=== PATIENT | female | born 1955 | race Asian ===

== ENCOUNTER 2020-04-24 07:08 | Outpatient (REF) | payer OTHER, SELFPAY ==
[2020-04-24 07:41] LABS: MANUAL DIFF FLAG NO
[2020-04-24 07:51] LABS: Basophils Absolute Auto 0.1 X10*3/uL (0.0-0.2); Basophils Percent Auto 1.3 % (0-2); Eosinophils Absolute Auto 0.2 X10*3/uL (0.0-0.4); Eosinophils Percent Auto 4.4 % (0-4); Hematocrit 40.8 % (37-47); Hemoglobin 13.1 g/dl (12.0-16.0); Imm Gran Abs Auto 0.01 X10*3/uL (0.00-0.03); Imm Gran Pct Auto 0.2 % (0.0-0.4); Immature Retic Fraction 8.7 % (3.0-15.9); Lymphocytes Absolute Auto 2.2 X10*3/uL (1.2-4.9); Lymphocytes Percent Auto 40.3 % (20-40); Mean Corpuscular HGB Conc 32.1 g/dl (31.0-35.0); Mean Corpuscular Hemoglobin 24.1 pg (27.0-33.0); Mean Platelet Volume 9.4 fL (9.4-12.3); Monocytes Absolute Auto 0.4 X10*3/uL (0.1-1.2); Monocytes Percent Auto 6.9 % (2-11); Neutrophils Absolute Auto 2.6 X10*3/uL (2.0-8.3); Neutrophils Percent Auto 46.9 % (45-73); Platelet Count 286 X10*3/uL (160-400); Red Blood Count 5.44 X10*6/uL (4.20-5.50); Red Cell Distribution Width 13.5 % (11.0-16.0); Retic HGB Equivalent 27.2 pg (30.0-35.0); Reticulocyte Percent 1.3 % (0.5-1.8); Reticulocytes Absolute 0.072 X10*6/uL (0.026-0.095); White Blood Count 5.5 X10*3/uL (4.8-10.8)
[2020-04-24 08:04] LABS: Alanine Aminotransferase 24 U/L (0-31); Albumin Level 4.6 g/dL (3.5-5.0); Alkaline Phosphatase 96 U/L (39-117); Anion Gap 14 (12-20); Aspartate Amino Transferase 28 U/L (5-31); Bilirubin Total 0.3 mg/dL (0.0-1.0); Blood Urea Nitrogen 15 mg/dL (9-16); Calcium 9.6 mg/dL (8.4-10.2); Carbon Dioxide 27 mmol/L (22-29); Chloride 104 mmol/L (96-108); Cholesterol 225 mg/dL; Estimated Glomerular Filt Rate > 60; Glucose Random 97 mg/dL (60-115); HDL Cholesterol 68 mg/dL; Iron 115 mcg/dL (30-160); LDL Cholesterol Calculated 141 mg/dl; Percent Iron Saturation 33 % (15-50); Potassium 4.8 mmol/l (3.3-5.1); Sodium 140 mmol/L (135-145); Total Iron Binding Capacity 345 mcg/dL (228-428); Total Protein 8.2 g/dL (6.5-8.0); Triglycerides 82 mg/dL; Unsaturated Iron Binding 230 ug/dL
[2020-04-24 08:26] LABS: Ferritin 295 ng/mL (10-250); Free T4 (Free Thyroxine) 0.98 ng/dL (0.71-1.85); Thyroid Stimulating Hormone 1.43 uIU/mL (0.32-4.0); Vitamin D 25-OH Total 74.5 ng/mL (>30)
[2020-04-24 08:49] LABS: Folate > 20.0 ng/mL (> or = 4.0); Vitamin B12 1040 pg/mL (200-900)
[2020-04-24 08:55] LABS: Glucose Urine UA NEG (NEG); Leukocyte Esterase Urine NEG (NEG); Nitrite Urine NEG (NEG); Urine Blood NEG (NEG); Urine Ketones NEG (NEG); Urine Protein NEG (NEG-TRACE)
[2020-04-24 08:57] LABS: Appearance Urine CLEAR; Color Urine YELLOW
[2020-04-24 09:17] LABS: Bacteria Urine TRACE /LPF; Mucus Urine 1+ /LPF; RBC Urine 0-2 /HPF (0); Squamous Epithelial Cell Urine 1+ /LPF; WBC Urine 0-2 /HPF (0-4)
== END 2020-04-24 07:09 | disposition home or self-care (01) ==
LOC: HO.LAB 07:08
PROVIDERS: Visit Provider Internal Medicine
DX: Z00.00 Encounter for general adult medical examination without abnormal findings (principal); E78.00 Pure hypercholesterolemia, unspecified
CPT/HCPCS: 36415; 80053; 80061; 81001; 82306; 82607; 82728; 82746; 83540; 84439; 84443; 85025; 85045

== ENCOUNTER 2021-05-10 07:48 | Outpatient (REF) | payer OTHER, SELFPAY ==
--- NOTE | ~2021-05-10 | MM_ITS ---
EXAMINATION: MM SCREENING DIGITAL BREAST TOMOSYNTHESIS, BILATERAL CLINICAL INFORMATION: Screening. Asymptomatic. The lifetime risk of breast cancer based on the Tyrer-Cuzick Model is 4.3%. COMPARISON: Mammography: September 29, 2018 and studies dating back to May 15, 2013 TECHNIQUE: Digital breast tomosynthesis is performed in both the craniocaudal and mediolateral oblique views along with computer-aided detection (CAD). Synthesized 2D images are generated from the tomosynthesis. FINDINGS: There are scattered areas of fibroglandular density (ACR BI-RADS breast composition Category b). There are no significant masses, abnormal calcifications, or other abnormalities. MM/MM tomosynthesis screening BI IMPRESSION: There are no significant changes from prior study. ASSESSMENT: BI-RADS 1: Negative RECOMMENDATION: Routine annual mammography screening. This patient's information was entered into a reminder system with a target due date for their next mammogram.
--- NOTE | ~2021-05-10 | MM_ITS ---
EXAMINATION: BONE DENSITOMETRY CLINICAL INDICATION: Osteopenia. COMPARISON: Previous BD dated 09/29/2018 and baseline BD dated 09/13/2016. TECHNIQUE: Using a [employer]anta[employer] DXA System (software version: 13.1) manufactured by [employer], dual-energy x-ray absorptiometry was performed of the lumbar spine and left hip. The images are of good technical quality. Summary results are attached. FINDINGS: AP SPINE L1-L4: Current: BMD 0.912 g/cm2, Z-score -0.4, T-score -2.2, osteopenia, 0.8% decrease from previous, 2.4% decrease from baseline (<5% change is not significant). Prior: BMD 0.919 g/cm2. Baseline: BMD 0.934 g/cm2. LEFT FEMUR, NECK: Current: BMD 0.807 g/cm2, Z-score -0.1, T-score -1.7, osteopenia. Prior: BMD 0.780 g/cm2. Baseline: BMD 0.830 g/cm2. LEFT FEMUR, TOTAL: Current: BMD 0.886 g/cm2, Z-score 0.4, T-score -1.0, normal, 2.3% decrease from previous, 0.2% increase from baseline (<5% change is not significant). Prior: BMD 0.907 g/cm2. Baseline: BMD 0.884 g/cm2. IDENTIFIED RISK FACTORS: Menopause, intestinal/bowel disease, secondary osteoporosis. HISTORY OF FRACTURE: None listed. MEDICATIONS: Calcium, vitamin D. MM/XR DEXA axial skeleton IMPRESSION: 1. DIAGNOSIS: Osteopenia based on the lowest T-score value of -2.2 in the lumbar spine applying World Health Organization criteria. 2. 10-YEAR FRACTURE RISK PREDICTION, FRAX: Major osteoporotic fracture (clinical spine, forearm, hip or shoulder) 5.1%. Hip fracture 0.6%. 3. Treatment Recommendations: NOF guidelines recommend consideration for treatment in postmenopausal women and men age 50 and older presenting with the following: -A hip or vertebral (clinical or morphometric) fracture. -T-score less than or equal to -2.5 at the femoral neck or spine after appropriate evaluation to exclude secondary causes. -Low bone mass at the hip or spine and a 10-year fracture probability by FRAX of greater than or equal to 3% for hip fracture or greater than or equal to 20% for major osteoporotic fracture based on the [place] adapted WHO algorithm. 4. Other Recommendations: All treatment decisions require clinical judgment and consideration of individual patient factors, including patient preferences, comorbidities, previous drug use, risk factors not captured in the FRAX model (e.g. frailty, falls, vitamin D deficiency, increased bone turnover, interval significant decline in bone density) and possible under or overestimation of fracture risk by FRAX. Additional medical evaluation for secondary cause of low bone mineral density may be appropriate. FUTURE SCAN RECOMMENDATION: People with diagnosed cases of osteoporosis or at high risk for fracture should have regular bone mineral density tests. For patients eligible for Medicare, routine testing is allowed once every 2 years. The testing frequency can be increased to one year for patients who have rapidly progressing disease, those who are receiving or discontinuing medical therapy to restore bone mass, or have additional risk factors.
== END 2021-05-10 07:49 | disposition home or self-care (01) ==
LOC: HO.MAMMO 07:48
PROVIDERS: PCP Internal Medicine; Visit Provider Internal Medicine
DX: Z12.31 Encounter for screening mammogram for malignant neoplasm of breast (principal); Z13.820 Encounter for screening for osteoporosis; M85.80 Other specified disorders of bone density and structure, unspecified site; Z78.0 Asymptomatic menopausal state; Z79.899 Other long term (current) drug therapy
CPT/HCPCS: 77063; 77067; 77080

== ENCOUNTER 2021-05-19 08:03 | Outpatient (REF) | payer OTHER, SELFPAY ==
[2021-05-19 08:18] LABS: MANUAL DIFF FLAG NO
[2021-05-19 08:42] LABS: Basophils Absolute Auto 0.1 X10*3/uL (0.0-0.2); Basophils Percent Auto 1.1 % (0-2); Eosinophils Absolute Auto 0.2 X10*3/uL (0.0-0.4); Hemoglobin 12.2 g/dl (12.0-16.0); Imm Gran Abs Auto 0.01 X10*3/uL (0.00-0.03); Imm Gran Pct Auto 0.2 % (0.0-0.4); Lymphocytes Absolute Auto 2.4 X10*3/uL (1.2-4.9); Lymphocytes Percent Auto 42.3 % (20-40); Mean Corpuscular HGB Conc 32.1 g/dl (31.0-35.0); Mean Corpuscular Hemoglobin 24.1 pg (27.0-33.0); Mean Corpuscular Volume 75.1 fL (80.0-98.0); Mean Platelet Volume 9.4 fL (9.4-12.3); Monocytes Absolute Auto 0.3 X10*3/uL (0.1-1.2); Monocytes Percent Auto 6.1 % (2-11); Neutrophils Absolute Auto 2.6 x10*3/uL (2.0-8.3); Neutrophils Percent Auto 46.3 % (45-73); Platelet Count 294 X10*3/uL (160-400); Red Blood Count 5.06 X10*6/uL (4.20-5.50); Red Cell Distribution Width 14.1 % (11.0-16.0); White Blood Count 5.6 X10*3/uL (4.8-10.8)
[2021-05-19 09:03] LABS: Alanine Aminotransferase 20 U/L (0-31); Albumin Level 4.4 g/dL (3.5-5.0); Alkaline Phosphatase 95 U/L (39-117); Anion Gap 12 (12-20); Aspartate Amino Transferase 26 U/L (5-31); Bilirubin Total 0.3 mg/dL (0.0-1.0); Blood Urea Nitrogen 13 mg/dL (9-16); Calcium 10.1 mg/dL (8.4-10.2); Carbon Dioxide 29 mmol/L (22-29); Chloride 105 mmol/L (96-108); Cholesterol 199 mg/dL; Estimated Glomerular Filt Rate > 60; Glucose Random 95 mg/dL (60-115); HDL Cholesterol 60 mg/dL; LDL Cholesterol Calculated 124 mg/dl; Potassium 4.9 mmol/L (3.3-5.1); Sodium 141 mmol/L (135-145); Triglycerides 76 mg/dL
[2021-05-19 09:25] LABS: Free T4 (Free Thyroxine) 0.91 ng/dL (0.71-1.85); Thyroid Stimulating Hormone 0.94 uIU/mL (0.32-4.0); Vitamin D 25-OH Total 79.8 ng/mL (>30)
[2021-05-21 04:40] LABS: Folate > 20.0 ng/mL (> or = 4.0); Vitamin B12 944 pg/mL (200-900)
== END 2021-05-19 08:04 | disposition home or self-care (01) ==
LOC: HO.LAB 08:03
PROVIDERS: PCP Internal Medicine; Visit Provider Internal Medicine
DX: E78.00 Pure hypercholesterolemia, unspecified (principal)
CPT/HCPCS: 36415; 80053; 80061; 82306; 82607; 82746; 84439; 84443; 85025

== ENCOUNTER 2021-08-03 05:57 | Outpatient (REF) | payer OTHER, SELFPAY ==
[2021-08-03 07:52] LABS: Anion Gap 13 (12-20); Blood Urea Nitrogen 10 mg/dL (9-16); Calcium 9.6 mg/dL (8.4-10.2); Carbon Dioxide 25 mmol/L (22-29); Chloride 105 mmol/L (96-108); Estimated Glomerular Filt Rate > 60; Glucose Random 91 mg/dL (60-115); Potassium 4.7 mmol/L (3.3-5.1); Sodium 138 mmol/L (135-145)
== END 2021-08-03 05:58 | disposition home or self-care (01) ==
LOC: HO.LAB 05:57
PROVIDERS: PCP Internal Medicine; Visit Provider Nurse Practitioner Family
DX: I10 Essential (primary) hypertension (principal)
CPT/HCPCS: 36415; 80048

== ENCOUNTER 2022-05-18 07:51 | Outpatient (REF) | payer MEDICARE, SELFPAY ==
[2022-05-18 08:07] LABS: MANUAL DIFF FLAG NO
[2022-05-18 08:30] LABS: Basophils Absolute Auto 0.1 X10*3/uL (0.0-0.2); Basophils Percent Auto 1.1 % (0-2); Eosinophils Absolute Auto 0.3 X10*3/uL (0.0-0.4); Hematocrit 38.1 % (37.0-47.0); Hemoglobin 12.2 g/dl (12.0-16.0); Imm Gran Abs Auto 0.01 X10*3/uL (0.00-0.03); Imm Gran Pct Auto 0.2 % (0.0-0.4); Immature Retic Fraction 13.9 % (3.0-15.9); Lymphocytes Absolute Auto 2.4 X10*3/uL (1.2-4.9); Lymphocytes Percent Auto 43.8 % (20-40); Mean Corpuscular Hemoglobin 23.8 pg (27.0-33.0); Mean Corpuscular Volume 74.3 fL (80.0-98.0); Mean Platelet Volume 8.6 fL (9.4-12.3); Monocytes Absolute Auto 0.3 X10*3/uL (0.1-1.2); Monocytes Percent Auto 5.3 % (2-11); Neutrophils Absolute Auto 2.4 x10*3/uL (2.0-8.3); Neutrophils Percent Auto 44.6 % (45-73); Platelet Count 287 X10*3/uL (160-400); Red Blood Count 5.13 X10*6/uL (4.20-5.50); Red Cell Distribution Width 13.2 % (11.0-16.0); Retic HGB Equivalent 29.6 pg (30.0-35.0); Reticulocyte Percent 1.1 % (0.5-1.8); Reticulocytes Absolute 0.057 X10*6/uL (0.026-0.095); White Blood Count 5.4 X10*3/uL (4.8-10.8)
[2022-05-18 09:08] LABS: Alanine Aminotransferase 37 U/L (0-31); Albumin Level 4.4 g/dL (3.5-5.0); Alkaline Phosphatase 89 U/L (39-117); Anion Gap 15 (12-20); Aspartate Amino Transferase 37 U/L (5-31); Bilirubin Total 0.7 mg/dL (0.0-1.0); Blood Urea Nitrogen 11 mg/dL (9-16); Calcium 9.7 mg/dL (8.4-10.2); Carbon Dioxide 26 mmol/L (22-29); Chloride 101 mmol/L (96-108); Cholesterol 208 mg/dL; Estimated Glomerular Filt Rate > 60; Glucose Random 91 mg/dL (60-115); HDL Cholesterol 55 mg/dL; Iron 132 mcg/dL (30-160); LDL Cholesterol Calculated 130 mg/dl; Percent Iron Saturation 42 % (15-50); Potassium 4.8 mmol/L (3.3-5.1); Sodium 137 mmol/L (135-145); Total Iron Binding Capacity 311 mcg/dL (228-428); Total Protein 7.8 g/dL (6.5-8.0); Triglycerides 116 mg/dL; Unsaturated Iron Binding 179 ug/dL
[2022-05-18 09:40] LABS: Ferritin 459 ng/mL (10-250); Free T4 (Free Thyroxine) 0.98 ng/dL (0.71-1.85); Thyroid Stimulating Hormone 1.02 uIU/mL (0.32-4.0); Vitamin B12 1066 pg/mL (200-900); Vitamin D 25-OH Total 66.1 ng/mL (>30)
== END 2022-05-18 07:52 | disposition home or self-care (01) ==
LOC: HO.LAB 07:51
PROVIDERS: PCP Internal Medicine; Visit Provider Internal Medicine
DX: E78.00 Pure hypercholesterolemia, unspecified (principal); I10 Essential (primary) hypertension
CPT/HCPCS: 36415; 80053; 80061; 82306; 82607; 82728; 82746; 83540; 84439; 84443; 85025; 85045

== ENCOUNTER 2022-06-22 10:39 | Outpatient (REF) | payer MEDICARE, SELFPAY ==
--- NOTE | ~2022-06-22 | MM_ITS ---
EXAMINATION: MM SCREENING DIGITAL BREAST TOMOSYNTHESIS, BILATERAL CLINICAL INFORMATION: Screening. Asymptomatic. The lifetime risk of breast cancer based on the Tyrer-Cuzick Model is 4%. COMPARISON: Mammography: 05/10/2021, 09/29/2018, 09/27/2017 TECHNIQUE: Digital breast tomosynthesis is performed in both the craniocaudal and mediolateral oblique views along with computer-aided detection (CAD). Synthesized 2D images are generated from the tomosynthesis. Additional left MLO view is provided. FINDINGS: There are scattered areas of fibroglandular density (ACR BI-RADS breast composition Category b). There are no significant masses, abnormal calcifications, or other abnormalities. No architectural abnormality or developing density or significant change from prior studies. There are some scattered vascular calcifications again seen. The axilla and skin contours are unremarkable. MM/MM tomosynthesis screening BI IMPRESSION: No mammographic evidence of malignancy. ASSESSMENT: BI-RADS 1: Negative RECOMMENDATION: Routine annual mammography screening. This patient's information was entered into a reminder system with a target due date for their next mammogram.
== END 2022-06-22 10:40 | disposition home or self-care (01) ==
LOC: HO.MAMMO 10:39
PROVIDERS: Visit Provider Internal Medicine
DX: Z12.31 Encounter for screening mammogram for malignant neoplasm of breast (principal)
CPT/HCPCS: 77063; 77067

== ENCOUNTER 2023-04-04 10:08 | Outpatient (AMB) | payer MEDICARE, SELFPAY ==
[2023-04-04 10:10] VITALS: BP 118/78; PULSE 70; O2SAT 99; BMI 21.9
--- NOTE | 2023-04-04 10:10 | A.OFFPC_ITS ---
Vital Signs 04/04/23 10:10 Height 5 ft 2 in Weight 120 lb 0.2 oz BMI 21.9 BP 118/78 Blood Pressure Location Lt brachial Position Sitting Pulse 70 Pulse Source Pulse Oximeter Pulse Oximetry (%) 99 Oxygen Delivery Method Room Air Intake Visit Reasons: Annual Exam Intake Note: Patient is here today for a physical. Manager Privacy Required: No Allergies lisinopril Allergy (Intermediate, Verified 04/04/23 10:10) Cough dextromethorphan [From Robitussin Cough and Cold CF] Allergy (Unknown, Verified 04/04/23 10:10) Unknown guaifenesin [From Robitussin Cough and Cold CF] Allergy (Unknown, Verified 04/04/23 10:10) Unknown phenylephrine [From Robitussin Cough and Cold CF] Allergy (Unknown, Verified 04/04/23 10:10) Unknown amoxicillin Adverse Reaction (Mild, Unverified 04/04/23 10:20) Fainting Medication List - Last Reconciled 04/04/23 by Ernie Almeida MD biotin 10 mg PO DAILY cholecalciferol (vitamin D3) 25 mcg PO DAILY losartan-hydrochlorothiazide 100-12.5 mg 1 tab PO DAILY 90 days multivitamin 1 tab PO DAILY Tobacco use date assessed: 04/04/23 Fall risk assessment: No Falls in past year Last assessed Fall Risk: 04/04/23 HPI Annual Exam HPI Details 68-year-old female with hypertension, hy percholesterolemia osteopenia last seen in September 2022. Patient is colonoscopy is due, up-to-date with mammogram and bone density. PAtient was seen by dentist and was rx amox- she had syncope had diarrhea- -discussedc about hydration as she has HCTZ, decline changing med PFSH Medical History (Updated 04/04/23 @ 11:17 by Ernie Almeida MD) Breast cancer screening by mammogram Colon cancer screening Blood pressure elevated without history of HTN Vitamin D deficiency Osteopenia Constipation Microcytic anemia Celiac disease Surgical History H/O endoscopy History of colonoscopy Family History (Updated 09/09/22 @ 15:53 by Hilda Knapp CMA) Father No problems noted. Paternal Aunt No problems noted. Mother No problems noted. Social History (Updated 12/29/23 @ 10:48 by Ernie Almeida MD) Housing: House Alcohol intake: current Comment: one shot once a month Patient Tobacco Use Status: Never used Tobacco e-Cigarette/Vaping Use: Never Used Second Hand Smoke Exposure: No Current occupational status: employed Cognitive needs: No Hearing needs: No Vision needs: Yes Questionnaire PHQ-9 Over the last 2 weeks, how often have you been bothered by any of the following problems? 1. Little interest or pleasure in doing things: not at all 2. Feeling down, depressed, or hopeless: not at all 3. Trouble falling or staying asleep, or sleeping too much: not at all 4. Feeling tired or having little energy: not at all 5. Poor appetite or overeating: not at all 6. Feeling bad about yourself - or that you are a failure or have let yourself or your family down: not at all 7. Trouble concentrating on things, such as reading the newspaper or watching television: not at all 8. Moving or speaking so slowly that other people could have noticed. Or the opposite - being so fidgety or restless that you have been moving around a lot more than usual: not at all 9. Thoughts that you would be better off or of hurting yourself in some way: not at all Total score: 0 Depression Screening Interpretation: Negative Depression Screening Done: Yes Source: Developed by Drs. Sincere English, Elsa Kenney, Danial Maldonado and colleagues, with an educational bryan from [employer]. Thrive Questionnaire Date Thrive assessed: 05/30/22 I am a: Patient What is your living situation today?: I have a steady place to live Within the past 12 months, did the food you bought not last and you didn't have the money to get more?: Never true Within the past 12 months, did you worry whether your food would run out before you got money to buy more?: Never true Do you have trouble paying for medicines?: No Do you have trouble getting transportation to medical appointments?: No Do you have trouble paying your heating and electricity bill?: No Do you have trouble taking care of your child, family member or friend?: No Do you have trouble with day-to-day activities such as bathing, preparing meals, shopping, managing finances, etc.?: No Are you currently unemployed and looking for a job?: No Are you interested in more education?: No AUDIT C Alcohol Use Questionnaire (AUDIT-C) 1. How often do you have a drink containing alcohol?: Monthly or less 2. How many drinks containing alcohol do you have on a typical day when you are drinking?: 1 or 2 3. How often do you have six or more drinks on one occasion?: Never Total Score: 1 Score Reviewed/Action Taken: No JUAN-7 AMB Questionnaire JUAN-7 Date JUAN - 7 assessed: 04/04/23 Feeling nervous, anxious, or on edge: 0 = Not at all Not being able to stop or control worryin = Not at all Worrying too much about different things: 0 = Not at all Trouble relaxin = Not at all Being so restless that it is hard to sit still: 0 = Not at all Becoming easily annoyed or irritable: 0 = Not at all Feeling afraid as if something awful might happen: 0 = Not at all Total JUAN-7 score (0-4 normal; 5-9 mild; 10-14 moderate; 15-21 severe): 0 Source: Developed by Drs. Sincere English, Elsa Kenney, Danial Maldonado and colleagues, with an educational bryan from [employer]. Review of Systems Const Denies poor appetite and Denies weakness Eyes Denies no additional complaints ENT Reports Normal hearing present, Denies dizziness, Denies nasal congestion, Denies tinnitus and Denies sore throat Card Denies chest pain, Denies syncope, Denies rapid heart rate and Denies dyspnea Resp Denies cough and Denies dyspnea GI Denies change in stool character, Reports constipation, Denies diarrhea, Denies nausea and Denies vomiting Denies urinary frequency, Denies difficulty voiding and Denies dysuria Neuro Reports Normal hearing present, Denies confusion, Denies dizziness, Denies syncope and Denies weakness Psych Denies confusion Physical exam (Primary Care) Vital Signs: Last Vital Signs Pulse 70 04/04/23 10:10 BP 118/78 04/04/23 10:10 Pulse Ox 99 04/04/23 10:10 Oxygen Delivery Method Room Air 04/04/23 10:10 BMI result Body Mass Index 21.9 Tobacco/Smoking Status: Tobacco use Status Tobacco use date assessed 04/04/23 04/04/23 10:11 Patient Tobacco Use Status Never used Tobacco 04/04/23 10:48 e-Cigarette/Vaping Use Never Used 04/04/23 10:48 PHQ-9: PHQ-9 Score PHQ-9: Total score 0 04/04/23 10:42 Depression Screening Interpretation: Negative Thrive Assessment: Date of Thrive Assessment Date Thrive assessed 05/30/22 04/04/23 10:11 Const General: No confusion Orientation/consciousness: No confusion HENMT Other: impacted cerumen Head: Yes normocephalic Ears: external ears normal Face and sinus: Yes normal facial exam Mouth: moist mucous membranes Throat: Yes tonsils normal Eyes Conjunctivae: conjunctivae normal Pupils: Equal, round and reactive pupils present and Pupil accommodation reflex normal Direct Ophthalmoscopy: normal light reflex Neck Neck: No lymphadenopathy Thyroid: Thyroid normal Chest Chest palpation & inspection: normal inspection of the chest Resp Effort & Inspection: normal respiratory effort and no audible wheezes Auscultation: clear to auscultation bilaterally, no crackles, no wheezes and lung sounds not diminished Cardio Rate: regular rate Rhythm: regular rhythm Peripheral pulses: radial pulses present and dorsalis pedis present GI Palpation (GI): no masses Auscultation: normal bowel sounds and normoactive bowel sounds Rectal Exam - Female: deferred Skin General skin exam: no rashes or lesions noted Rashes: no rashes Neuro General: No confusion Cranial nerves: Yes Equal, round and reactive pupils present and Yes Normal hearing present Cognition (Neuro): normal cognition Gait exam (Neuro): Normal gait present Motor exam (neuro): 5/5 motor strength present throughout Deep tendon reflexes (DTR's): Right brachioradialis reflex intensity grade: 2+, Left brachioradialis reflex intensity grade: 2+, Right patellar reflex intensity grade: 2+ and Left patellar reflex intensity grade: 2+ Extrem General: No edema Office Procedures Cerumen Removal From which ear canal was the cerumen removed: bilateral Removal: irrigation, otoscope w/curette, cerumen loop/spoon and other Notes: patient tolerated procedure well, no complications and ear canal clear [id number] Irrigation/Lavage Assessment and Plan Assessment & Plan (1) Annual physical exam: Code(s): Z00.00 - Encounter for general adult medical examination without abnormal findings (2) HTN (hypertension): Code(s): I10 - Essential (primary) hypertension Plan: Continue with blood pressure medication. Decrease salt intake and exercise patient takes losartan hydrochlorothiazide once a day (3) Hypercholesterolemia: Code(s): E78.00 - Pure hypercholesterolemia, unspecified Plan: Avoid fried foods, chicken skin, eggs, butter margarine, pastries and meat. Be it pork or beef they have a lot of cholesterol LDL goal of less than 130 and triglyceride of less than 150 (4) Osteopenia: Comment: September 2018, 05/2021 Code(s): M85.80 - Other specified disorders of bone density and structure, unspecified site Plan: Keep active, take vitamin-D, iron rich foods. (5) Colon cancer screening: Code(s): Z12.11 - Encounter for screening for malignant neoplasm of colon Plan: Reminded about colonoscopy (6) Syncope: Code(s): R55 - Syncope and collapse Plan: ? dehydration - placed on antibiotic had N and V and diarrhea. advised all antibiotic can cause diarrhea- advised to take Probiotics (7) Impacted cerumen of both ears: Code(s): H61.23 - Impacted cerumen, bilateral Plan: TM intact after irrigation Orders: Orders Comprehensive Met. Panel Today R55 - Syncope and collapse Thyroid Stimulating Hormone Today R55 - Syncope and collapse Vitamin D 25-OH Total Today R55 - Syncope and collapse Magnesium Today R55 - Syncope and collapse ECG 12 lead EKG Today R55 - Syncope and collapse Complete Blood Count Auto Diff Today R55 - Syncope and collapse Free T4 (Free Thyroxine) Today R55 - Syncope and collapse Vitamin B12 and Folate Today R55 - Syncope and collapse Lipid Panel Today E78.00 - Pure hypercholesterolemia, unspecified, R55 - Syncope and collapse Referrals Cologuard Test Z12.11 - Encounter for screening for malignant neoplasm of colon , Z12.12 - Encounter for screening for malignant neoplasm of rectum Coding Level of Care Code Est Pt Prev Care >65y(45152) Diagnoses Annual physical exam Z00.00 HTN (hypertension) I10 Hypercholesterolemia E78.00 Osteopenia M85.80 Colon cancer screening Z12.11 Syncope R55 Impacted cerumen of both ears H61.23 CPT Codes Office Procedure - CPT: 73225-Tdx Irrigation/Lavage ([id number])
== END 2023-04-04 11:33 | disposition home or self-care (01) ==
PROVIDERS: Visit Provider Internal Medicine
DX: Z00.00 Encounter for general adult medical examination without abnormal findings (principal); I10 Essential (primary) hypertension; E78.00 Pure hypercholesterolemia, unspecified; M85.80 Other specified disorders of bone density and structure, unspecified site; R55 Syncope and collapse; H61.23 Impacted cerumen, bilateral
CPT/HCPCS: 69210; 99397

== ENCOUNTER → 2023-06-16 11:49 | Outpatient (REF) | payer MEDICARE, SELFPAY ==
--- NOTE | 2023-06-16 13:45 | ECG_ITS ---
Test Reason : SYNCOPE Blood Pressure : / mmHG Vent. Rate : 080 BPM Atrial Rate : 080 BPM P-R Int : 138 ms QRS Dur : 074 ms QT Int : 368 ms P-R-T Axes : 070 052 047 degrees QTc Int : 424 ms Normal sinus rhythm Normal ECG No previous ECGs available Referred By: Ernie Almeida Electronically Signed By:CAMILO COULTER MD
== END ==
LOC: HO.CARD 11:49
PROVIDERS: PCP Internal Medicine; Visit Provider Internal Medicine
DX: R55 Syncope and collapse (principal)
CPT/HCPCS: 93005

== ENCOUNTER → 2023-06-16 13:45 | Outpatient (BNV) | payer MEDICARE, SELFPAY | PROVIDERS: PCP Internal Medicine; Visit Provider Internal Medicine Cardiovascular Disease | DX: R55 Syncope and collapse (principal) | CPT/HCPCS: 93010 ==

== ENCOUNTER 2023-06-23 07:29 | Outpatient (REF) | payer MEDICARE, SELFPAY ==
[2023-06-23 07:42] LABS: MANUAL DIFF FLAG NO
[2023-06-23 08:03] LABS: Basophils Absolute Auto 0.1 X10*3/uL (0.0-0.2); Basophils Percent Auto 1.2 % (0-2); Eosinophils Absolute Auto 0.3 X10*3/uL (0.0-0.4); Eosinophils Percent Auto 5.7 % (0-4); Hematocrit 35.6 % (37.0-47.0); Hemoglobin 11.8 g/dl (12.0-16.0); Imm Gran Abs Auto 0.01 X10*3/uL (0.00-0.03); Imm Gran Pct Auto 0.2 % (0.0-0.4); Lymphocytes Absolute Auto 2.2 X10*3/uL (1.2-4.9); Lymphocytes Percent Auto 37.9 % (20-40); Mean Corpuscular HGB Conc 33.1 g/dl (31.0-35.0); Mean Corpuscular Hemoglobin 24.3 pg (27.0-33.0); Mean Corpuscular Volume 73.4 fL (80.0-98.0); Mean Platelet Volume 8.8 fL (9.4-12.3); Monocytes Absolute Auto 0.4 X10*3/uL (0.1-1.2); Monocytes Percent Auto 6.6 % (2-11); Neutrophils Absolute Auto 2.8 x10*3/uL (2.0-8.3); Neutrophils Percent Auto 48.4 % (45-73); Platelet Count 297 X10*3/uL (160-400); Red Blood Count 4.85 X10*6/uL (4.20-5.50); Red Cell Distribution Width 13.9 % (11.0-16.0); White Blood Count 5.8 X10*3/uL (4.8-10.8)
[2023-06-23 08:37] LABS: Alanine Aminotransferase 21 U/L (0-31); Albumin Level 4.4 g/dL (3.5-5.0); Alkaline Phosphatase 98 U/L (39-117); Anion Gap 13 (12-20); Aspartate Amino Transferase 28 U/L (5-31); Bilirubin Total 0.7 mg/dL (0.0-1.0); Blood Urea Nitrogen 12 mg/dL (9-16); Calcium 9.8 mg/dL (8.4-10.2); Carbon Dioxide 27 mmol/L (22-29); Chloride 102 mmol/L (96-108); Cholesterol 195 mg/dL (<200); Estimated Glomerular Filt Rate 59; Glucose Random 95 mg/dL (60-115); HDL Cholesterol 60 mg/dL (>40); LDL Cholesterol Calculated 120 mg/dL (<100); Magnesium 2.2 mg/dL (1.6-2.6); Sodium 138 mmol/L (135-145); Total Protein 8.4 g/dL (6.5-8.0); Triglycerides 79 mg/dL (<150)
[2023-06-23 08:53] LABS: Free T4 (Free Thyroxine) 1.07 ng/dL (0.71-1.85); Thyroid Stimulating Hormone 1.69 uIU/mL (0.32-4.0); Vitamin D 25-OH Total 86.7 ng/mL (>30)
[2023-06-23 09:03] LABS: Folate 15.9 ng/mL (> or = 4.0); Vitamin B12 1287 pg/mL (200-900)
== END 2023-06-23 07:30 | disposition home or self-care (01) ==
LOC: HO.LAB 07:29
PROVIDERS: PCP Internal Medicine; Visit Provider Internal Medicine
DX: R55 Syncope and collapse (principal); E78.00 Pure hypercholesterolemia, unspecified
CPT/HCPCS: 36415; 80053; 80061; 82306; 82607; 82746; 83735; 84439; 84443; 85025

== ENCOUNTER 2023-07-04 10:03 | Outpatient (AMB) | payer MEDICARE, SELFPAY ==
[2023-07-04 10:05] VITALS: BP 148/70; PULSE 74; O2SAT 97; BMI 23.2
--- NOTE | 2023-07-04 10:05 | MHC.PC.OV ---
Vital Signs 07/04/23 10:05 Height 5 ft 2 in Weight 127 lb BMI 23.2 BP 148/70 H Blood Pressure Location Lt brachial Position Sitting Pulse 74 Pulse Source Pulse Oximeter Pulse Oximetry (%) 97 Oxygen Delivery Method Room Air Intake Visit Reasons: syncope Super[employer] Required: No Allergies lisinopril Allergy (Intermediate, Verified 07/04/23 10:06) Cough dextromethorphan [From Robitussin Cough and Cold CF] Allergy (Unknown, Verified 07/04/23 10:06) Unknown guaifenesin [From Robitussin Cough and Cold CF] Allergy (Unknown, Verified 07/04/23 10:06) Unknown phenylephrine [From Robitussin Cough and Cold CF] Allergy (Unknown, Verified 07/04/23 10:06) Unknown amoxicillin Adverse Reaction (Mild, Verified 07/04/23 10:06) Fainting Medication List - Last Reconciled 07/04/23 by Ernie Almeida MD biotin 10 mg PO DAILY cholecalciferol (vitamin D3) 25 mcg PO DAILY losartan-hydrochlorothiazide 100-12.5 mg 1 tab PO DAILY 90 days multivitamin 1 tab PO DAILY Tobacco use date assessed: 07/04/23 Dental Screening Dental Screen Date: 07/04/23 Did you have a dental visit in the last 12 months?: Yes Did you have a dental problem in the last 6 months where you did not have access to dental care?: No Was dental information given to patient?: Patient has dentist HPI syncope HPI Details 68-year-old female with a history of hypertension hypercholesterolemia osteopenia coming in for follow-up. March 2023 last seen for physical exam patient that time had a syncopal episode question of dehydration. [facility] Medical History (Updated 07/04/23 @ 10:11 by Ernie Almeida MD) Breast cancer screening by mammogram Colon cancer screening Blood pressure elevated without history of HTN Vitamin D deficiency Osteopenia Constipation Microcytic anemia Celiac disease Surgical History H/O endoscopy History of colonoscopy Family History (Updated 09/09/22 @ 15:53 by Hilda Knapp CMA) Father No problems noted. Paternal Aunt No problems noted. Mother No problems noted. Social History (Updated 04/04/23 @ 10:48 by Ernie Almeida MD) Housing: House Alcohol intake: current Comment: one shot once a month Patient Tobacco Use Status: Never used Tobacco e-Cigarette/Vaping Use: Never Used Second Hand Smoke Exposure: No Current occupational status: employed Cognitive needs: No Hearing needs: No Vision needs: Yes Questionnaire Thrive Questionnaire Date Thrive assessed: 05/30/22 AUDIT C Alcohol Use Questionnaire (AUDIT-C) 1. How often do you have a drink containing alcohol?: Monthly or less 2. How many drinks containing alcohol do you have on a typical day when you are drinking?: 1 or 2 3. How often do you have six or more drinks on one occasion?: Never Total Score: 1 Score Reviewed/Action Taken: No JUAN-7 AMB Questionnaire JUAN-7 Date JUAN - 7 assessed: 04/04/23 Source: Developed by Drs. Sincere English, Elsa Kenney, Danial Maldonado and colleagues, with an educational bryan from [employer]. Physical exam (Primary Care) Vital Signs: Last Vital Signs Pulse 74 07/04/23 10:05 BP 148/70 H 07/04/23 10:05 Pulse Ox 97 07/04/23 10:05 Oxygen Delivery Method Room Air 07/04/23 10:05 BMI result Body Mass Index 23.2 Tobacco/Smoking Status: Tobacco use Status Tobacco use date assessed 07/04/23 07/04/23 10:12 Patient Tobacco Use Status Never used Tobacco 07/04/23 10:12 e-Cigarette/Vaping Use Never Used 07/04/23 10:12 Thrive Assessment: Date of Thrive Assessment Date Thrive assessed 05/30/22 07/04/23 10:12 Const General: alert; No acute distress Eyes Conjunctivae: conjunctivae normal Resp Auscultation: clear to auscultation bilaterally Cardio Rate: regular rate Rhythm: regular rhythm GI Inspection: Yes normal to inspection Extrem General: Yes normal to inspection and No edema Assessment and Plan Assessment & Plan (1) HTN (hypertension): Code(s): I10 - Essential (primary) hypertension Plan: Continue with blood pressure medication. Decrease salt intake and exercise patient on losartan hydrochlorothiazide 100/12.5 mg once a day. BP high today (2) Hypercholesterolemia: Code(s): E78.00 - Pure hypercholesterolemia, unspecified Plan: Avoid fried foods, chicken skin, eggs, butter margarine, pastries and meat. Be it pork or beef they have a lot of cholesterol last blood work normal (3) Osteopenia: Comment: September 2018, 05/2021 Code(s): M85.80 - Other specified disorders of bone density and structure, unspecified site Plan: Discussed about bone density repeat after 2 years (4) Anemia: Code(s): D64.9 - Anemia, unspecified Plan: Question of having anemia and concerns on having a positive Cologuard test. (5) Syncope: Code(s): R55 - Syncope and collapse Plan: Anemia (6) Positive colorectal cancer screening using Cologuard test: Code(s): R19.5 - Other fecal abnormalities Plan: Patient is advised follow-up on the Gastroenterology. September 2023 Orders: Orders Complete Blood Count Auto Diff Today D64.9 - Anemia, unspecified Ferritin Today D64.9 - Anemia, unspecified IRON PROFILE Today D64.9 - Anemia, unspecified XR DEXA axial skeleton Today M81.0 - Age-related osteoporosis without current pathological fracture, M85.80 - Other specified disorders of bone density and structure, unspecified site Reticulocyte Count Today D64.9 - Anemia, unspecified Coding Level of Care Code Est Pt Level 4 (52543) Diagnoses HTN (hypertension) I10 Hypercholesterolemia E78.00 Osteopenia M85.80 Anemia D64.9 Syncope R55 Positive colorectal cancer screening using Cologuard test R19.5
== END 2023-07-04 10:28 | disposition home or self-care (01) ==
PROVIDERS: PCP Internal Medicine; Visit Provider Internal Medicine
DX: I10 Essential (primary) hypertension (principal); E78.00 Pure hypercholesterolemia, unspecified; M85.80 Other specified disorders of bone density and structure, unspecified site; D64.9 Anemia, unspecified; R55 Syncope and collapse; R19.5 Other fecal abnormalities
CPT/HCPCS: 99214

== ENCOUNTER 2023-08-05 09:42 | Outpatient (REF) | payer MEDICARE, SELFPAY ==
--- NOTE | ~2023-08-05 | MM_ITS ---
EXAMINATION: BONE DENSITOMETRY CLINICAL INDICATION: Age-related osteoporosis without current pathological fracture. COMPARISON: Previous BD dated 05/10/2021 and baseline BD dated 09/13/2016. TECHNIQUE: Using a SqueezeCMM DXA System (software version: 13.1) manufactured by [employer], dual-energy x-ray absorptiometry was performed of the lumbar spine and left hip. The images are of good technical quality. Summary results are attached. FINDINGS: LEFT FEMUR, NECK: Current: BMD 0.772 g/cm2, Z-score -0.2, T-score -1.9, osteopenia. Prior: BMD 0.807 g/cm2. Baseline: BMD 0.830 g/cm2. LEFT FEMUR, TOTAL: Current: BMD 0.821 g/cm2, Z-score 0.0, T-score -1.5, osteopenia, 7.3% decrease from previous, 7.1% decrease from baseline (<5% change is not significant). Prior: BMD 0.886 g/cm2. Baseline: BMD 0.884 g/cm2. AP SPINE L2-L4 (excluding L1): The data of L1-L4 has been changed to exclude the L1 vertebral body, because metallic artifact at this level may cause overestimation of lumbar spine density. Current: BMD 0.883 g/cm2, Z-score -0.7, T-score -2.6, osteoporosis, 6.0% decrease from previous, 7.8% decrease from baseline (<5% change is not significant). Prior: BMD 0.939 g/cm2. Baseline: BMD 0.958 g/cm2. IDENTIFIED RISK FACTORS: Menopause. HISTORY OF FRACTURE: None listed. MEDICATIONS: Calcium or multivitamin. Vitamin D. MM/XR DEXA axial skeleton IMPRESSION: 1. DIAGNOSIS: Osteoporosis based on the lowest T-score value of -2.6 in the lumbar spine applying World Health Organization criteria. 2. 10-YEAR FRACTURE RISK PREDICTION, FRAX: According to the guidelines, FRAX calculation should only be performed on patients in the osteopenia bone density category. Therefore, FRAX was not performed on this patient. 3. Treatment Recommendations: NOF guidelines recommend consideration for treatment in postmenopausal women and men age 50 and older presenting with the following: -A hip or vertebral (clinical or morphometric) fracture. -T-score less than or equal to -2.5 at the femoral neck or spine after appropriate evaluation to exclude secondary causes. -Low bone mass at the hip or spine and a 10-year fracture probability by FRAX of greater than or equal to 3% for hip fracture or greater than or equal to 20% for major osteoporotic fracture based on the [place] adapted WHO algorithm. 4. Other Recommendations: All treatment decisions require clinical judgment and consideration of individual patient factors, including patient preferences, comorbidities, previous drug use, risk factors not captured in the FRAX model (e.g. frailty, falls, vitamin D deficiency, increased bone turnover, interval significant decline in bone density) and possible under or overestimation of fracture risk by FRAX. Additional medical evaluation for secondary cause of low bone mineral density may be appropriate. FUTURE SCAN RECOMMENDATION: People with diagnosed cases of osteoporosis or at high risk for fracture should have regular bone mineral density tests. For patients eligible for Medicare, routine testing is allowed once every 2 years. The testing frequency can be increased to one year for patients who have rapidly progressing disease, those who are receiving or discontinuing medical therapy to restore bone mass, or have additional risk factors.
== END 2023-08-05 09:43 | disposition home or self-care (01) ==
LOC: HO.MAMMO 09:42
PROVIDERS: PCP Internal Medicine; Visit Provider Internal Medicine
DX: Z12.31 Encounter for screening mammogram for malignant neoplasm of breast (principal); Z13.820 Encounter for screening for osteoporosis; Z78.0 Asymptomatic menopausal state; M85.80 Other specified disorders of bone density and structure, unspecified site; M81.0 Age-related osteoporosis without current pathological fracture
CPT/HCPCS: 77063; 77067; 77080

== ENCOUNTER → 2023-08-05 10:00 | Outpatient (BNV) | payer MEDICARE, SELFPAY | PROVIDERS: PCP Internal Medicine; Visit Provider Radiology Diagnostic Radiology | DX: Z12.31 Encounter for screening mammogram for malignant neoplasm of breast (principal) | CPT/HCPCS: 77063; 77067 ==

== ENCOUNTER 2023-09-17 07:33 | Outpatient (REF) | payer MEDICARE, SELFPAY ==
[2023-09-17 07:47] LABS: MANUAL DIFF FLAG NO
[2023-09-17 08:28] LABS: Basophils Absolute Auto 0.1 X10*3/uL (0.0-0.2); Basophils Percent Auto 1.5 % (0-2); Eosinophils Absolute Auto 0.3 X10*3/uL (0.0-0.4); Eosinophils Percent Auto 5.1 % (0-4); Hematocrit 33.3 % (37.0-47.0); Hemoglobin 11.2 g/dl (12.0-16.0); Imm Gran Abs Auto 0.01 X10*3/uL (0.00-0.03); Imm Gran Pct Auto 0.2 % (0.0-0.4); Lymphocytes Absolute Auto 2.2 X10*3/uL (1.2-4.9); Lymphocytes Percent Auto 41.1 % (20-40); Mean Corpuscular HGB Conc 33.6 g/dl (31.0-35.0); Mean Corpuscular Hemoglobin 24.6 pg (27.0-33.0); Mean Platelet Volume 8.5 fL (9.4-12.3); Monocytes Absolute Auto 0.3 X10*3/uL (0.1-1.2); Neutrophils Absolute Auto 2.5 x10*3/uL (2.0-8.3); Neutrophils Percent Auto 46.1 % (45-73); Platelet Count 306 X10*3/uL (160-400); Red Blood Count 4.56 X10*6/uL (4.20-5.50); Red Cell Distribution Width 13.7 % (11.0-16.0); White Blood Count 5.3 X10*3/uL (4.8-10.8)
[2023-09-17 09:08] LABS: Iron 112 mcg/dL (30-160); Percent Iron Saturation 38 % (15-50); Total Iron Binding Capacity 293 mcg/dL (228-428); Unsaturated Iron Binding 181 ug/dL
[2023-09-17 09:24] LABS: Ferritin 336 ng/mL (10-250)
[2023-09-22 21:14] LABS: Immunoglobulin A 353 mg/dL (70-320)
[2023-09-22 21:52] LABS: Transglutaminase Ab IgG <1.0 U/mL; Transglutaminase IgA <1.0 U/mL
[2023-09-23 22:44] LABS: Gliadin Deamidated IgA Ab <1.0 U/mL; Gliadin Deamidated IgG Ab <1.0 U/mL
[2023-09-25 13:34] LABS: Endomysial IgA Antibody Negative (Negative)
== END 2023-09-17 07:34 | disposition home or self-care (01) ==
LOC: HO.LAB 07:33
PROVIDERS: PCP Internal Medicine; Visit Provider Internal Medicine
DX: K90.0 Celiac disease (principal)
CPT/HCPCS: 36415; 82728; 82784; 83540; 85025; 86231; 86258; 86364

== ENCOUNTER 2023-10-15 10:33 | Outpatient (REF) | payer MEDICARE, SELFPAY ==
[2023-10-15 10:50] LABS: MANUAL DIFF FLAG NO
[2023-10-15 11:28] LABS: Basophils Absolute Auto 0.1 X10*3/uL (0.0-0.2); Basophils Percent Auto 1.3 % (0-2); Eosinophils Absolute Auto 0.3 X10*3/uL (0.0-0.4); Eosinophils Percent Auto 4.7 % (0-4); Hematocrit 35.9 % (37.0-47.0); Imm Gran Abs Auto 0.01 X10*3/uL (0.00-0.03); Imm Gran Pct Auto 0.2 % (0.0-0.4); Lymphocytes Absolute Auto 2.2 X10*3/uL (1.2-4.9); Lymphocytes Percent Auto 40.1 % (20-40); Mean Corpuscular HGB Conc 33.4 g/dl (31.0-35.0); Mean Corpuscular Volume 71.8 fL (80.0-98.0); Mean Platelet Volume 8.8 fL (9.4-12.3); Monocytes Absolute Auto 0.5 X10*3/uL (0.1-1.2); Monocytes Percent Auto 9.3 % (2-11); Neutrophils Absolute Auto 2.5 x10*3/uL (2.0-8.3); Neutrophils Percent Auto 44.4 % (45-73); Platelet Count 287 X10*3/uL (160-400); Red Cell Distribution Width 13.1 % (11.0-16.0); Reticulocyte Percent 1.3 % (0.5-1.8); Reticulocytes Absolute 0.066 X10*6/uL (0.026-0.095); White Blood Count 5.5 X10*3/uL (4.8-10.8)
[2023-10-15 12:30] LABS: Iron 115 mcg/dL (30-160); Percent Iron Saturation 39 % (15-50); Total Iron Binding Capacity 294 mcg/dL (228-428); Unsaturated Iron Binding 179 ug/dL
[2023-10-15 12:39] LABS: Ferritin 449 ng/mL (10-250)
== END 2023-10-15 10:34 | disposition home or self-care (01) ==
LOC: HO.LAB 10:33
PROVIDERS: PCP Internal Medicine; Visit Provider Internal Medicine
DX: D64.9 Anemia, unspecified (principal)
CPT/HCPCS: 36415; 82728; 83540; 85025; 85045

== ENCOUNTER 2023-10-27 13:26 | Day surgery (SDC) | payer MEDICARE, SELFPAY ==
[2023-10-23 15:02] VITALS: BMI 24.2
[2023-10-27 13:42] VITALS: BMI 24.0
[2023-10-27 13:53] VITALS: BP 183/90; PULSE 91; RESP 16; TEMP 36.8; O2SAT 97
[2023-10-27] MEDS: Lactated Ringers 1,000 ML 50 ML IVCONT (14:16)
--- NOTE | 2023-10-27 16:12 | P.CONAN_ITS ---
[facility] Active Problems Active Problems: All Active Problems Anemia (Acute) Positive colorectal cancer screening using Cologuard test (Acute) Impacted cerumen of both ears (Acute) Syncope (Acute) HTN (hypertension) (Acute) Hypercholesterolemia (Acute) Colonoscopy refused (Acute) Breast cancer screening by mammogram (Acute) Colon cancer screening (Acute) Osteopenia (Acute) Impacted cerumen of right ear (Acute) Annual physical exam (Acute) Past Medical History Medical History Elevated cholesterol HTN (hypertension) Vitamin D deficiency Osteopenia Constipation Microcytic anemia Celiac disease Patient : No Family History Family History Father No problems noted. Paternal Aunt No problems noted. Mother No problems noted. Surgical History Surgical History H/O endoscopy History of colonoscopy History of Problems with Anesthesia: No Social History Social History Housing: House Alcohol intake: current Comment: one shot once a month Patient Tobacco Use Status: Never used Tobacco e-Cigarette/Vaping Use: Never Used Second Hand Smoke Exposure: No Use of substances other than those prescribed or required for medical reasons: No Are you DNR?: No Advance Directives Information Provided: Yes Advance Directives on File: No Current occupational status: employed Cognitive needs: No Hearing needs: No Vision needs: Yes Meds Allergies Allergy/AdvReac Type Severity Reaction Status Date / Time lisinopril Allergy Intermediate Cough Verified 07/04/23 10:06 dextromethorphan Allergy Unknown Stomach Verified 10/27/23 13:47 [From Robitussin Cough and Upset Cold CF] guaifenesin Allergy Unknown Stomach Verified 10/27/23 13:47 [From Robitussin Cough and Upset Cold CF] phenylephrine Allergy Unknown Stomach Verified 10/27/23 13:47 [From Robitussin Cough and Upset Cold CF] amoxicillin AdvReac Mild Fainting Verified 07/04/23 10:06 Active Medications: Current Medications Lactated Ringer's (Lr) 1,000 mls @ 50 mls/hr IVCONT .Q20H JANA Last Admin: 10/27/23 14:16 Dose: 50 mls/hr Sodium Biphosphate/Sodium Phosphate (Sodium Phosphate,Wheeler-Dibasic 133 Ml Enema) 133 ml RI ONCE PRN PRN Reason: Poor Colonoscopy Prep Results Home Medications ?Medication ?Instructions ?Recorded ?Confirmed ?Last Taken ?Type biotin 10 mg tablet 10 mg PO DAILY 03/21/20 10/23/23 Unknown History cholecalciferol (vitamin D3) 25 25 mcg PO DAILY 03/21/20 10/23/23 Unknown History mcg (1,000 unit) capsule multivitamin 1 tab PO DAILY 03/21/20 10/23/23 Unknown History Exam Height,Weight and Vital Signs: Height 5 ft 1.5 in Weight 58.513 kg Last Vital Signs Temp 98.3 F 10/27/23 13:53 Pulse 91 10/27/23 13:53 Resp 16 10/27/23 13:53 BP 183/90 H 10/27/23 13:53 Pulse Ox 97 10/27/23 13:53 O2 Del Method Room Air 10/27/23 13:53 Airway Mallampati Class: II TM Dist: >3cm Neck ROM: Full Heart: RRR Lungs: CTA Assessment and Plan Final Anesthetic Review History of Problems with Anesthesia: No NPO: Yes ASA Class: II Final Preanesthetic Review: Meds/Allgs Chart Reviewed, Consent Obtained/Reviewed and Anes Risks/Benef Reviewed Anesthetic Plan Anesthetic Plan: MAC: Disposition: Standard PACU
[2023-10-27 16:48] VITALS: BP 109/54; PULSE 64; RESP 16; TEMP 36.4; O2SAT 100
--- NOTE | 2023-10-27 16:51 | P.BOP_ITS ---
Brief Operative Note Date of Service: 10/27/23 Pre-op diagnosis: + Cologuard Post-op diagnosis: other (Diverticulosis) Procedure: Colonoscopy to the cecum and TI Surgeon: Sincere Marino MD Anesthesia: MAC Was an Drafting Technician used for this Procedure?: No Estimated blood loss (mL): 0 Pathology: none sent Condition: stable Disposition: PACU
[2023-10-27 17:03] VITALS: BP 151/71; PULSE 57; RESP 16; TEMP 36.6; O2SAT 100
--- NOTE | 2023-10-28 01:30 | OP_ITS ---
DATE OF SERVICE: 10/27/2023 SURGEON: Sincere Marino MD INDICATIONS: Patient presents for evaluation of positive Cologuard test. Full consent has been obtained from her for this, including risks of bleeding and perforation. PREOPERATIVE DIAGNOSIS: Positive Cologuard test. POSTOPERATIVE DIAGNOSIS: PROCEDURE PERFORMED: Colonoscopy to cecum and terminal ileum. ESTIMATED BLOOD LOSS: COMPLICATIONS: ANESTHESIA: Medication used, monitored anesthesia care. ASSISTANTS: SPECIMENS: POSTOPERATIVE DIAGNOSES: Positive Cologuard test, mild sigmoid diverticulosis and small internal hemorrhoids. DESCRIPTION OF PROCEDURE: The patient was placed in the left lateral decubitus position. The digital rectal exam revealed no abnormalities. The Olympus video pediatric colonoscope was entered into the rectum and advanced easily to the cecum. Once in the cecum, I did identify normal-appearing cecal pouch with appendiceal orifice and a normal-appearing ileocecal valve. The terminal ileum was cannulated and appeared normal. Scope was withdrawn back in the colon. The entire cecum and ileocecal valve appeared normal. The scope was then slowly withdrawn assessing all mucosal surfaces carefully. Preparation was excellent. I did not visualize any sign of polyps, colitis, nor angiodysplasias. There was a mild amount of sigmoid diverticulosis. In the rectum, scope was retroflexed visualizing some internal hemorrhoids, but no other pathology. The rectal mucosa appeared normal. Scope was straightened and withdrawn from the patient. She tolerated the procedure well and was returned to the recovery area in stable condition. IMPRESSION: 1. Sigmoid diverticulosis. 2. Internal hemorrhoids. PLAN: Given the negative colonoscopy and negative family history of colon cancer, I would recommend a followup colonoscopy in 10 years for further screening. She did have recent laboratories showing negative laboratories for celiac disease as she does remain on a strict gluten-free diet for underlying celiac disease. Her ferritin level was 336, hemoglobin 11.2, MCV 73, iron of 112, and iron saturation of 38%. Based on that workup, I do not think she needs any further evaluation of her anemia. Given the normal iron studies but microcytic indices, I suspect she may have some underlying thalassemia. At this point, she will see me on a p.r.n. basis. MD ALICIA Almodovar/CHACE / [phone] [facility] HOSPITALAleksandr
--- NOTE | 2023-10-28 06:35 | PC.NURSE ---
24hr update documented on paper
== END 2023-10-27 17:28 | disposition home or self-care (01) ==
PROVIDERS: PCP Internal Medicine; Visit Provider Internal Medicine
PROC: 0DJD8ZZ Inspection of Lower Intestinal Tract, Via Natural or Artificial Opening Endoscopic (ICD-10-PCS; CPT 45378; principal; 2023-10-27 14:40)
DX: R19.5 Other fecal abnormalities (principal); K57.30 Diverticulosis of large intestine without perforation or abscess without bleeding; K64.8 Other hemorrhoids; K90.0 Celiac disease; I10 Essential (primary) hypertension; D50.9 Iron deficiency anemia, unspecified; Z79.899 Other long term (current) drug therapy; Z88.1 Allergy status to other antibiotic agents; Z88.8 Allergy status to other drugs, medicaments and biological substances
CPT/HCPCS: 45378; J2704

== ENCOUNTER 2023-10-31 12:54 | Outpatient (AMB) | payer MEDICARE, SELFPAY ==
[2023-10-31 12:56] VITALS: BP 140/64; PULSE 78; O2SAT 98; BMI 23.8
--- NOTE | 2023-10-31 12:56 | MHC.PC.OV ---
Vital Signs 10/31/23 12:56 10/31/23 13:22 Height 5 ft 1.5 in Weight 128 lb 0.2 oz BMI 23.8 BP 140/64 H 138/70 Blood Pressure Location Lt brachial Lt brachial Position Sitting Sitting Pulse 78 Pulse Source Pulse Oximeter Pulse Oximetry (%) 98 Oxygen Delivery Method Room Air Intake Visit Reasons: 3 Month F/U Intake Note: Patient is here to follow up Anesthesiology Physician Assistant Required: No Allergies lisinopril Allergy (Intermediate, Verified 10/31/23 12:56) Cough dextromethorphan [From Robitussin Cough and Cold CF] Allergy (Unknown, Verified 10/31/23 12:56) Stomach Upset guaifenesin [From Robitussin Cough and Cold CF] Allergy (Unknown, Verified 10/31/23 12:56) Stomach Upset phenylephrine [From Robitussin Cough and Cold CF] Allergy (Unknown, Verified 10/31/23 12:56) Stomach Upset amoxicillin Adverse Reaction (Mild, Verified 10/31/23 12:56) Fainting Tobacco use date assessed: 07/04/23 Fall risk assessment: No Falls in past year Last assessed Fall Risk: 10/31/23 Dental Screening Dental Screen Date: 07/04/23 HPI 3 Month F/U HPI Details 68-year-old female with a history of hypertension hypercholesterolemia and anemia coming in for follow-up. Last seen in June. Patient had anemia with positive Cologuard test and was advised to follow-up with Gastroenterology. Colonoscopy done in October 27 2023 showing sigmoid diverticulosis and internal hemorrhoids. Advised repeat testing in 10 years [facility] Medical History (Updated 10/31/23 @ 13:18 by Ernie Almeida MD) Colon cancer screening Breast cancer screening by mammogram Colonoscopy refused Positive colorectal cancer screening using Cologuard test Elevated cholesterol HTN (hypertension) Vitamin D deficiency Osteopenia Constipation Microcytic anemia Celiac disease Surgical History H/O endoscopy History of colonoscopy Family History Father No problems noted. Paternal Aunt No problems noted. Mother No problems noted. Social History Housing: House Alcohol intake: current Comment: one shot once a month Patient Tobacco Use Status: Never used Tobacco e-Cigarette/Vaping Use: Never Used Second Hand Smoke Exposure: No Current occupational status: employed Cognitive needs: No Hearing needs: No Vision needs: Yes Questionnaire PHQ-9 Over the last 2 weeks, how often have you been bothered by any of the following problems? 1. Little interest or pleasure in doing things: not at all 2. Feeling down, depressed, or hopeless: not at all 3. Trouble falling or staying asleep, or sleeping too much: not at all 4. Feeling tired or having little energy: not at all 5. Poor appetite or overeating: not at all 6. Feeling bad about yourself - or that you are a failure or have let yourself or your family down: not at all 7. Trouble concentrating on things, such as reading the newspaper or watching television: not at all 8. Moving or speaking so slowly that other people could have noticed. Or the opposite - being so fidgety or restless that you have been moving around a lot more than usual: not at all 9. Thoughts that you would be better off or of hurting yourself in some way: not at all Total score: 0 Depression Screening Interpretation: Negative Depression Screening Done: Yes Source: Developed by Drs. Sincere English, Elsa Kenney, Danial Maldonado and colleagues, with an educational bryan from [employer]. Thrive Questionnaire Date Thrive assessed: 10/31/23 I am a: Patient What is your living situation today?: I have a steady place to live Within the past 12 months, did the food you bought not last and you didn't have the money to get more?: Never true Within the past 12 months, did you worry whether your food would run out before you got money to buy more?: Never true Do you have trouble paying for medicines?: No Do you have trouble getting transportation to medical appointments?: No Do you have trouble paying your heating and electricity bill?: No Do you have trouble taking care of your child, family member or friend?: No Do you have trouble with day-to-day activities such as bathing, preparing meals, shopping, managing finances, etc.?: No Are you currently unemployed and looking for a job?: No Are you interested in more education?: No Please select the resources that you would like help with: None Currently or been in a relationship where the following occur: No concerns reported THRIVE Score: 0 AUDIT C Alcohol Use Questionnaire (AUDIT-C) 1. How often do you have a drink containing alcohol?: Monthly or less 2. How many drinks containing alcohol do you have on a typical day when you are drinking?: 1 or 2 3. How often do you have six or more drinks on one occasion?: Never Total Score: 1 Score Reviewed/Action Taken: No JUAN-7 AMB Questionnaire JUAN-7 Date JUAN - 7 assessed: 10/31/23 Source: Developed by Drs. Sincere English, Elsa Kenney, Danial Maldonado and colleagues, with an educational bryan from [employer]. Physical exam (Primary Care) Vital Signs: Last Vital Signs Pulse 78 10/31/23 12:56 BP 140/64 H 10/31/23 12:56 Pulse Ox 98 10/31/23 12:56 Oxygen Delivery Method Room Air 10/31/23 12:56 BMI result Body Mass Index 23.8 Tobacco/Smoking Status: Tobacco use Status Tobacco use date assessed 07/04/23 10/31/23 13:02 Patient Tobacco Use Status Never used Tobacco 10/31/23 13:02 e-Cigarette/Vaping Use Never Used 10/31/23 13:02 PHQ-9: PHQ-9 Score PHQ-9: Total score 0 10/31/23 13:02 Depression Screening Interpretation: Negative Thrive Assessment: Date of Thrive Assessment Date Thrive assessed 10/31/23 10/31/23 13:02 Currently or been in a relationship where the following occur: No concerns reported Const General: alert; No acute distress Eyes Conjunctivae: conjunctivae normal Resp Auscultation: clear to auscultation bilaterally Cardio Rate: regular rate Rhythm: regular rhythm GI Inspection: Yes normal to inspection Extrem General: Yes normal to inspection and No edema Assessment and Plan Assessment & Plan (1) Anemia: Code(s): D64.9 - Anemia, unspecified Plan: Resolving. Colonoscopy done negative (2) HTN (hypertension): Code(s): I10 - Essential (primary) hypertension Plan: Continue with blood pressure medication. Decrease salt intake and exercise presently on losartan hydrochlorothiazide 100/12.5 mg once a day (3) Hypercholesterolemia: Code(s): E78.00 - Pure hypercholesterolemia, unspecified Plan: Avoid fried foods, chicken skin, eggs, butter margarine, pastries and meat. Be it pork or beef they have a lot of cholesterol June 2023 blood work within normal limits Coding Level of Care Code Est Pt Level 4 (77947) Diagnoses Anemia D64.9 HTN (hypertension) I10 Hypercholesterolemia E78.00
[2023-10-31 13:22] VITALS: BP 138/70
== END 2023-10-31 13:26 | disposition home or self-care (01) ==
PROVIDERS: PCP Internal Medicine; Visit Provider Internal Medicine
DX: D64.9 Anemia, unspecified (principal); I10 Essential (primary) hypertension; E78.00 Pure hypercholesterolemia, unspecified
CPT/HCPCS: 99214

== ENCOUNTER 2024-04-05 09:03 | Outpatient (AMB) | payer MEDICARE, SELFPAY ==
--- NOTE | 2024-04-05 09:04 | A.OFFPC_ITS ---
Vital Signs 04/05/24 09:05 Height 5 ft 1.5 in Weight 135 lb 6 oz BMI 25.2 BP 138/66 Blood Pressure Location Lt brachial Position Sitting Pulse 80 Pulse Source Pulse Oximeter Pulse Oximetry (%) 99 Oxygen Delivery Method Room Air Intake Visit Reasons: Annual exam Allergies lisinopril Allergy (Intermediate, Verified 04/05/24 09:07) Cough dextromethorphan [From Robitussin Cough and Cold CF] Allergy (Unknown, Verified 04/05/24 09:07) Stomach Upset guaifenesin [From Robitussin Cough and Cold CF] Allergy (Unknown, Verified 04/05/24 09:07) Stomach Upset phenylephrine [From Robitussin Cough and Cold CF] Allergy (Unknown, Verified 04/05/24 09:07) Stomach Upset amoxicillin Adverse Reaction (Mild, Verified 04/05/24 09:07) Fainting Medication List - Last Reconciled 04/05/24 by Ernie Almeida MD biotin 10 mg PO DAILY cholecalciferol (vitamin D3) 25 mcg PO DAILY losartan-hydrochlorothiazide 100-12.5 mg 1 tab PO DAILY 90 days multivitamin 1 tab PO DAILY Tobacco use date assessed: 04/05/24 Fall risk assessment: 1 Fall in past year Last assessed Fall Risk: 04/05/24 Dental Screening Dental Screen Date: 04/05/24 Did you have a dental visit in the last 12 months?: Yes Did you have a dental problem in the last 6 months where you did not have access to dental care?: No Was dental information given to patient?: Patient has dentist HPI Annual exam HPI Details The patient is a 69-year-old female presenting for a routine physical exam. Her weight has increased, noted to be the highest it has been recorded, although her Body Mass Index remains within acceptable limits. She reports a history of having a cold, which she attributes to recent weight changes. Her weight was documented in different seasons since 2019. Prior issues include a history of internal hemorrhoids and diverticulosis discovered during a colonoscopy, for which she is currently under routine surveillance. She denies constipation and diarrhea, and her last mammogram and bone density test were completed. Notably, her bone density has shown a 7% decrease in hip strength compared to previous evaluations, indicating a potential risk for fractures. There have been no previous drastic changes in calcium or vitamin D supplementation. Regarding pharmacological history, the patient has allergies to lisinopril, Robitussin, phenytoin, and amoxicillin. Current medications include biotin, vitamin D, losartan, hydrochlorothiazide, and a multivitamin. The patient reports no new medications since her last visit. Previous anemia has shown improvements, and no issues with kidney functions are reported. - Recent colonoscopy showed internal hem orrhoids and diverticulosis; no follow- up for 10 years recommended. - Recent mammogram and ongoing bone dens ity monitoring due to decrease in bone strength. - Current medications include biotin, vi tamin D, losartan, hydrochlorothiazide, and a multivitamin. - Emphasis on maintaining calcium and vi tamin D levels, particularly in colder climates where vitamin D from sunlight is reduced. - Advised on the importance of fluid int andreia for kidney health, recommended 6-8 glasses of water daily. - Lives with family, cares for grandchil dren. - Limited exercise, physical activity ma inly involves house chores and caring for grandchildren. - Dietary habits include a preference fo r warm water and Cyriac diet, which affects food choices. - Alcohol consumption is minimal, mostly social, with two drinks during events like s or [place]. - No tobacco use reported. - Constitutional: Denies fever, nausea, vomiting, and dizziness. - Respiratory: No reports of cough or di fficulty breathing. - Cardiovascular: Denies chest pain or d iscomfort. - Gastrointestinal: Denies constipation or diarrhea. - General: Reports good hearing, no swal lowing difficulties, and overall feels well with minimal concerns. - Colonoscopy results: Internal hemorrho ids and diverticulosis present. - Bone Density Test: 7% decrease in femo ral neck bone strength from prior evaluation. - Recent blood work indicating improved anemia status. - Lab results from October show stable kidn ey function. ON LICENSE OF [facility] Medical History (Updated 04/05/24 @ 09:13 by Ernie Almeida MD) Osteopenia Colon cancer screening Breast cancer screening by mammogram Colonoscopy refused Positive colorectal cancer screening using Cologuard test Elevated cholesterol HTN (hypertension) Vitamin D deficiency Osteopenia Constipation Microcytic anemia Celiac disease Surgical History H/O endoscopy History of colonoscopy Family History Father No problems noted. Paternal Aunt No problems noted. Mother No problems noted. Social History (Updated 04/05/24 @ 09:19 by Ernie Almeida MD) Housing: House Alcohol intake: current Comment: one shot once a month 1-2 DRINKS Patient Tobacco Use Status: Never used Tobacco e-Cigarette/Vaping Use: Never Used Second Hand Smoke Exposure: No Current occupational status: employed Cognitive needs: No Hearing needs: No Vision needs: Yes Questionnaire PHQ-9 Over the last 2 weeks, how often have you been bothered by any of the following problems? 1. Little interest or pleasure in doing things: not at all 2. Feeling down, depressed, or hopeless: not at all 3. Trouble falling or staying asleep, or sleeping too much: not at all 4. Feeling tired or having little energy: not at all 5. Poor appetite or overeating: not at all 6. Feeling bad about yourself - or that you are a failure or have let yourself or your family down: not at all 7. Trouble concentrating on things, such as reading the newspaper or watching television: not at all 8. Moving or speaking so slowly that other people could have noticed. Or the opposite - being so fidgety or restless that you have been moving around a lot more than usual: not at all 9. Thoughts that you would be better off or of hurting yourself in some way: not at all Total score: 0 Depression Screening Interpretation: Negative Depression Screening Done: Yes Source: Developed by Drs. Sincere English, Elsa Kenney, Danial Maldonado and colleagues, with an educational bryan from [employer]. Thrive Questionnaire Date Thrive assessed: 04/05/24 I am a: Patient What is your living situation today?: I choose not to answer this question Within the past 12 months, did the food you bought not last and you didn't have the money to get more?: I choose not to answer this question Within the past 12 months, did you worry whether your food would run out before you got money to buy more?: I choose not to answer this question Do you have trouble paying for medicines?: I choose not to answer this question Do you have trouble getting transportation to medical appointments?: I choose not to answer this question Do you have trouble paying your heating and electricity bill?: I choose not to answer this question Do you have trouble taking care of your child, family member or friend?: I choose not to answer this question Do you have trouble with day-to-day activities such as bathing, preparing meals, shopping, managing finances, etc.?: I choose not to answer this question Are you currently unemployed and looking for a job?: I choose not to answer this question Are you interested in more education?: I choose not to answer this question Please select the resources that you would like help with: None Currently or been in a relationship where the following occur: I choose not to answer THRIVE Score: 0 AUDIT C Alcohol Use Questionnaire (AUDIT-C) 1. How often do you have a drink containing alcohol?: 2-4 times a month 2. How many drinks containing alcohol do you have on a typical day when you are drinking?: 1 or 2 3. How often do you have six or more drinks on one occasion?: Never Total Score: 2 JUAN-7 AMB Questionnaire JUAN-7 Date JUAN - 7 assessed: 04/05/24 Feeling nervous, anxious, or on edge: 0 = Not at all Not being able to stop or control worryin = Not at all Worrying too much about different things: 0 = Not at all Trouble relaxin = Not at all Being so restless that it is hard to sit still: 0 = Not at all Becoming easily annoyed or irritable: 0 = Not at all Feeling afraid as if something awful might happen: 0 = Not at all Total JUAN-7 score (0-4 normal; 5-9 mild; 10-14 moderate; 15-21 severe): 0 Source: Developed by Drs. Sincere English, Elsa Kenney, Danial Maldonado and colleagues, with an educational bryan from [employer]. JUAN-7 Assessment Billing JUAN-7 Assessment Tool: JUAN-7 Assessment 97372 Review of Systems Const Denies poor appetite and Denies weakness Eyes Denies no additional complaints ENT Reports Normal hearing present, Denies dizziness, Denies nasal congestion, Denies tinnitus and Denies sore throat Card Denies chest pain, Denies syncope, Denies rapid heart rate and Denies dyspnea Resp Denies cough and Denies dyspnea GI Denies change in stool character, Reports constipation, Denies diarrhea, Denies nausea and Denies vomiting Denies urinary frequency, Denies difficulty voiding and Denies dysuria Neuro Reports Normal hearing present, Denies confusion, Denies dizziness, Denies syncope and Denies weakness Psych Denies confusion Physical exam (Primary Care) Vital Signs: Last Vital Signs Pulse 80 04/05/24 09:05 BP 138/66 04/05/24 09:05 Pulse Ox 99 04/05/24 09:05 Oxygen Delivery Method Room Air 04/05/24 09:05 BMI result Body Mass Index 25.2 Tobacco/Smoking Status: Tobacco use Status Tobacco use date assessed 04/05/24 04/05/24 09:08 Patient Tobacco Use Status Never used Tobacco 04/05/24 09:08 e-Cigarette/Vaping Use Never Used 04/05/24 09:08 PHQ-9: PHQ-9 Score PHQ-9: Total score 0 04/05/24 09:08 Depression Screening Interpretation: Negative Thrive Assessment: Date of Thrive Assessment Date Thrive assessed 04/05/24 04/05/24 09:08 Currently or been in a relationship where the following occur: I choose not to answer Const General: No confusion Orientation/consciousness: No confusion HENMT Head: Yes normocephalic Ears: external ears normal and TM's normal bilaterally Face and sinus: Yes normal facial exam Mouth: moist mucous membranes Throat: Yes tonsils normal Eyes Conjunctivae: conjunctivae normal Pupils: Equal, round and reactive pupils present and Pupil accommodation reflex normal Direct Ophthalmoscopy: normal light reflex Neck Neck: No lymphadenopathy Thyroid: Thyroid normal Chest Chest palpation & inspection: normal inspection of the chest Resp Effort & Inspection: normal respiratory effort and no audible wheezes Auscultation: clear to auscultation bilaterally, no crackles, no wheezes and lung sounds not diminished Cardio Rate: regular rate Rhythm: regular rhythm Peripheral pulses: radial pulses present and dorsalis pedis present GI Palpation (GI): no masses Auscultation: normal bowel sounds and normoactive bowel sounds Rectal Exam - Female: deferred Skin General skin exam: no rashes or lesions noted Rashes: no rashes Neuro General: No confusion Cranial nerves: Yes Equal, round and reactive pupils present and Yes Normal hearing present Cognition (Neuro): normal cognition Gait exam (Neuro): Normal gait present Motor exam (neuro): 5/5 motor strength present throughout Deep tendon reflexes (DTR's): Right brachioradialis reflex intensity grade: 2+, Left brachioradialis reflex intensity grade: 2+, Right patellar reflex intensity grade: 2+ and Left patellar reflex intensity grade: 2+ Extrem General: No edema Coding Level of Care Code Est Pt Prev Care >65y(40361) Diagnoses Annual physical exam Z00.00 Age-related osteoporosis without current pathological fracture M81.0 Osteoporosis type: age-related Presence of current pathological fracture: without current pathological fracture Primary hypertension I10 Hypertension type: primary hypertension Hypercholesterolemia E78.00 Additional Codes JUAN-7 Assessment Billing - JUAN-7 Assessment Tool: JUAN-7 Assessment 11456 ([id number]) Assessment & Plan Assessment & Plan (1) Annual physical exam: Code(s): Z00.00 - Encounter for general adult medical examination without abnormal findings Category: Medical (2) Osteoporosis: Comment: 10/2023 Code(s): M81.0 - Age-related osteoporosis without current pathological fracture Category: Medical Qualifiers: Osteoporosis type: age-related Presence of current pathological fracture: without current pathological fracture Qualified Code(s): M81.0 - Age- related osteoporosis without current pathological fracture (3) HTN (hypertension): Code(s): I10 - Essential (primary) hypertension Category: Medical Qualifiers: Hypertension type: primary hypertension Qualified Code(s): I10 - Essential (primary) hypertension (4) Hypercholesterolemia: Code(s): E78.00 - Pure hypercholesterolemia, unspecified Category: Medical Plan - Monitor weight and diet, encourage consistent diet rich in calcium and vitamin D. - Consideration of pharmacotherapy to strengthen bones once dental clearance is obtained. - Continue current medications, monitor for any allergic reactions. - No change in management for diverticulosis unless symptomatic. - Schedule for follow-up blood work in three months to monitor iron and anemia status. - Discuss lifestyle modifications to increase physical activity levels. During our visit, we discussed the significance of the patient's bone density reduction and the potential need for medication to strengthen the bone structure. I recommended judging this after obtaining dental clearance owing to the potential effects on both skeletal and dental bone health. We reviewed her current weight trends, which are noted to be higher than previous values but still within a manageable range. The patient expressed concern about cold weather-induced dietary challenges, leading to suggestions to maintain vitamin D and calcium intake. Various preventive strategies were discussed, including the importance of staying hydrated and consuming adequate nutrients to support overall health. We agreed on arranging blood work in three months to re-evaluate kidney function and anemia status. - Maintain daily intake of vitamin D and ensure adequate dietary calcium. - Aim to drink 6-8 glasses of water daily. - Continue current medications as prescribed. - Increase physical activity with regular, moderate exercises. - Schedule a dental visit to discuss potential bone-strengthening medication. - Follow up with routine lab work in three months. - Monitor any symptoms or allergic reactions to medications and report them promptly. - Arrange for the next annual check-up, as discussed. - Practice safety to prevent falls and fractures. - Consider flu and pneumonia vaccines as discussed. - Stay vigilant during the flu season, particularly with children around. Orders: Orders Comprehensive Met. Panel 3 Months I10 - Essential (primary) hypertension Lipid Panel 3 Months E78.00 - Pure hypercholesterolemia, unspecified, I10 - Essential (primary) hypertension Vitamin B12 and Folate 3 Months I10 - Essential (primary) hypertension Reticulocyte Count 3 Months I10 - Essential (primary) hypertension Ferritin 3 Months I10 - Essential (primary) hypertension Complete Blood Count Auto Diff 3 Months I10 - Essential (primary) hypertension Free T4 (Free Thyroxine) 3 Months I10 - Essential (primary) hypertension Thyroid Stimulating Hormone 3 Months I10 - Essential (primary) hypertension Vitamin D 25-OH Total 3 Months I10 - Essential (primary) hypertension IRON PROFILE 3 Months I10 - Essential (primary) hypertension UA CC w/rflx Micro + Cult 3 Months I10 - Essential (primary) hypertension, R30.0 - Dysuria
[2024-04-05 09:05] VITALS: BP 138/66; PULSE 80; O2SAT 99; BMI 25.2
== END 2024-04-05 09:42 | disposition home or self-care (01) ==
PROVIDERS: PCP Internal Medicine; Visit Provider Internal Medicine
DX: Z00.00 Encounter for general adult medical examination without abnormal findings (principal); M81.0 Age-related osteoporosis without current pathological fracture; I10 Essential (primary) hypertension; E78.00 Pure hypercholesterolemia, unspecified

== ENCOUNTER → 2024-04-05 09:03 | Outpatient (BNVA) | payer MEDICARE, SELFPAY | PROVIDERS: PCP Internal Medicine; Visit Provider Internal Medicine | DX: Z00.00 Encounter for general adult medical examination without abnormal findings (principal); M81.0 Age-related osteoporosis without current pathological fracture; I10 Essential (primary) hypertension; E78.00 Pure hypercholesterolemia, unspecified | CPT/HCPCS: 96127; 99397 ==

== ENCOUNTER 2024-08-10 09:54 | Outpatient (REF) | payer MEDICARE, SELFPAY ==
--- OUTSIDE RECORDS SUMMARY | 2024-08-10 11:07 | XMS_ITS ---
Author Organization [facility] Address [address] [place] [address] Care Team Providers Care Head Of Physics Name Role Phone Ernie Almeida MD Primary Care Provider Sincere Velasquez [phone] Allergies Allergen (clinical drug ingredient) Drug/Non Drug Allergy documented on EMR Reaction Allergy Type Onset Date Status phenylephrine Phenylephrine Unknown Drug Allergy Active lisinopril Lisinopril COUGH Drug Allergy Activ e amoxicillin Amoxicillin FAINTING Drug Allergy Act margret robitusson (uncoded) Unknown Allergy Active Results Component Value Reference Range Notes Ferritin Reviewed date:09/29/2023 10:32:44 PM Interpretation: Performing Lab:[facility], [address] [place] [phone] Notes/Report: Ferritin 336 10-250 ng/mL REASON FOR VISIT Patient presents today for other fecal abnormalities Medications Medication SIG (Take, Route, Frequency, Duration) Notes Start Date End Date Status Losartan Potassium-HCTZ 100-12.5 MG TAKE ONE TABLET BY MOUTH EVERY DAY Oral for 90 Active Vitamin D3 Active Multivitamin Active Biotin Active Social History Tobacco Use: Social History Observation Description Date Details (start date - stop date) Never Smoker NA - NA Tobacco Use/Smoking Question Answer Notes Patient is a nonsmoker Alcohol Screen Question Answer Notes Did you have a drink contain ing alcohol in the past year? Yes How often did you have a dri nk containing alcohol in the past year? Never (0 point) How many drinks did you have on a typical day when you were drinking in the past year? 1 or 2 drinks (0 point) How often did you have 6 or more drinks on one occasion in the past year? Never (0 point) Points 0 Interpretation Negative Section Notes: Nonsmoker, no sig. alcohol Originally from [place] Problems Problem Type SNOMED Code ICD Code Onset Dates Problem Status W/U Status Risk Notes Problem Celiac disease (165955183) Celiac disease (K90.0) Active confirmed Problem Positive colorectal cancer screening using Cologuard test (R19.5) Active confirmed Vital Signs Blood pressure systolic 00 mm Hg 09/16/19 24 Blood pressure diastolic 00 mm Hg 024 Height 61.50 in 09/16/2023 Weight 130 lbs 09/16/2023 BMI 24.16 kg/m2 09/16/2023 Encounters Encounter Location Date Provider Diagnosis [facility] [address] [place] [address] 09/16/2023 Sincere Marino Celiac disease K90.0 and Positive colorectal cancer screening using Cologuard test R19.5 Assessments Encounter Date Diagnosis (ICD Code) Assessment Notes Treatment Notes Treatment Clinical Notes Section Notes 09/16/2023 Celiac disease (ICD-10 - K90.0) Stay on the gluten-free diet Overall, Connor appears quite well from a clinical standpoint. She is not having any new or worrisome GI complaints. She is not having any symptoms to suggest active celiac disease despite what sounds like a not 100% strict gluten-free diet. Given her recent positive Cologuard test and her last colonoscopy being well over 10 years ago, I did recommend a colonoscopy for further evaluation. We did review the rationale for this regard to colon cancer prevention and/or early detection. Full consent was obtained for this, including risks of bleeding and perforation. The procedure will be done monitored anesthesia care. She was advised to stop iron one week before the procedure. In regard to the question of celiac disease I have ordered labs to recheck celiac disease laboratories. I shall also recheck iron studies and a CBC. If the iron studies remain elevated but her low MCV persists then I might indicate some other underlying issues such as some type of thalassemia. At some point we may want to reassess her with a gluten challenge and repeat duodenal biopsies try to make a more definitive assessment of her celiac disease one way or the other since her original biopsies of blood tests were so borderline. However, I don't think that is urgent. Connor was comfortable with this plan. Thank you again for allowing me to participate in Connor's care. I shall continue to keep you advised of her progress. 09/16/2023 Positive colorectal cancer screening using Cologuard test (ICD-10 - R19.5) Stop Iron for 1 week before the colonoscopy Overall, Connor appears quite well from a clinical standpoint. She is not having any new or worrisome GI complaints. She is not having any symptoms to suggest active celiac disease despite what sounds like a not 100% strict gluten-free diet. Given her recent positive Cologuard test and her last colonoscopy being well over 10 years ago, I did recommend a colonoscopy for further evaluation. We did review the rationale for this regard to colon cancer prevention and/or early detection. Full consent was obtained for this, including risks of bleeding and perforation. The procedure will be done monitored anesthesia care. She was advised to stop iron one week before the procedure. In regard to the question of celiac disease I have ordered labs to recheck celiac disease laboratories. I shall also recheck iron studies and a CBC. If the iron studies remain elevated but her low MCV persists then I might indicate some other underlying issues such as some type of thalassemia. At some point we may want to reassess her with a gluten challenge and repeat duodenal biopsies try to make a more definitive assessment of her celiac disease one way or the other since her original biopsies of blood tests were so borderline. However, I don't think that is urgent. Connor was comfortable with this plan. Thank you again for allowing me to participate in Connor's care. I shall continue to keep you advised of her progress. Plan Of Treatment Treatment Notes Assessment Notes Celiac disease Stay on the gluten-f ree diet Positive colorectal cancer s creening using Cologuard test Stop Iron for 1 week before the colonosc opy Pending Test Test Name Order Date IRON + IBC (FE) 09/16/2023 CBC w DIFF 09/16/2023 CELIAC PANEL #10 09/16/2023 Future Test Test Name Order Date COLONOSCOPY 09/16/2023 Next Appt Details Follow Up: prn, Reason: Progress Notes * PAULINA GUERREROOUNDOB:[birth year] (68 yo F)Acc No.[id number]:09/16/2023 Progress Notes Patient:?CONNOR GUERRERO Provider:?Sincere Marino MD :[id number]???Age:68 Y???Sex:Female D ate:09/16/2023 Address:[address] [place] [address] [id number] Pcp:Ernie Almeida MD Subjective: * Chief Complaints: * ???Patient presents today fo r other fecal abnormalities * HPI: ???incontinence:? I saw Connor in consultation today in regard to further evaluation of her previous iron deficiency anemia, suspicion of celiac disease, and a positive Cologuard test. ?I last saw Connor in 2011, at which time we had reviewed her history of possible celiac disease based on duodenal biopsies and laboratories. However, the duodenal biopsies in 2010 had shown just slight changes with slight villous atrophy and mild duodenitis. Her celiac profile only showed a slightly positive antigliadin IgA antibody with the remainder of the celiac disease profile being negative. She reports that she has stayed on a gluten-free diet although by the sound of her description she is not definitively strict with that. She has stayed on iron by her report as well. Her most recent labs from earlier this year showed hemoglobin 11.8 with MCV of 73. Studies from May of 2022 showed an iron of 132, iron saturation of 42%, and ferritin of 459. Her B12 and folate levels ?were normal. ?In addition to the upper endoscopy with duodenal biopsies in 2010, she also had a negative Colonoscopy at that time as well. She presently feels very well. She enjoys a good appetite, without any significant heartburn or dysphagia. She denies a particular change in bowel habits and denies any signs of bleeding. There is no known family history of colon cancer nor celiac disease. She denies any abdominal pain, signs of jaundice, nor any unintentional weight loss. ?As you know, she did have a positive Cologuard test this past April. She has not had a colonoscopy since her negative screening exam in 2010. * ROS:?General/Constitutional:?Change in appetite?denies.?Chills?denies.?Fatigue?denies.?Ophthalmologic:?Patient denies? Negative..?ENT:?Patient denies?Negative..?Respiratory:?Patient denies?No coughing/hemoptysis..?Cardiovascular:?Patient denies? No chest pain/orthopnea..?Gastrointestinal:?Comments?See HPI for details.?Genitourinary:?Patient denies? No dysuria/hematuria..?Musculoskeletal:?Patient denies? No specific arthralgias/myalgias..?Skin:?Patient denies?No rash/pruritus..?Neurologic:?Patient denies? No headaches/seizures..?Psychiatric:?Patient denies?Negative..? * Medical History:? * Surgical History:?Denies Pas t Surgical History * Hospitalization/Major Diagno stic Procedure:?No Hospitalization History. * Family History:?Father: dece ased.?Mother: .? NO KNOWN FAMILY HX OF COLON CANCER OR CELIAC DISEASE. * Social History:?Tobacco Use:?Tobacco Use/Smoking?Patient is a?nonsmoker.?Drugs/Alcohol:?Alcohol Screen?Did you have a drink containing alcohol in the past year??Yes,?How often did you have a drink containing alcohol in the past year??Never (0 point),?How many drinks did you have on a typical day when you were drinking in the past year??1 or 2 drinks (0 point),?How often did you have 6 or more drinks on one occasion in the past year??Never (0 point),?Points?0,?Interpretation?Negative.?Miscellaneous:?Marital status: . Occupation: Retired. ???Nonsmoker, no sig. alcohol Originally from [facility]. * Medications:?TakingBiotin Mu ltivitamin Vitamin D3 Losartan Potassium-HCTZ 100- 12.5 MG Tablet TAKE ONE TABLET BY MOUTH EVERY DAY Oral Medication List reviewed and reconciled with the patientTaking Biotin Taking Multivitamin Taking Vitamin D3 Taking Losartan Potassium-HCTZ 100-12.5 MG Tablet TAKE ONE TABLET BY MOUTH EVERY DAY Oral Medication List reviewed and reconciled with the patient * Allergies:?robitussonLisinop ril: COUGHAmoxicillin: FAINTINGPhenylephrineyes[Allergies Verified] Objective: * Vitals:?Wt: 130 lbs, Ht: 61. 50 in, BMI:24.16 Index, BP: 00/00 mm Hg. * Examination: ???General Examination: ?GENERAL APPEARANCE:?pleasant, well nourished, well developed, in no acute distress.?EYES:?sclera non-icteric.?ORAL CAVITY:?mucosa moist.?NECK/THYROID:?no cervical lymphadenopathy, neck supple.?SKIN:?nonjaundiced, no spider angiomata..?HEART:?S1, S2 normal.?LUNGS:?clear to auscultation bilaterally.?ABDOMEN:?normal bowel sounds, no guarding or rigidity, no hepatosplenomegaly, no masses palpable, soft, nontender, nondistended..?EXTREMITIES:?no edema.?NEUROLOGIC:?alert and oriented.? Assessment: * Assessment: 1.?Positive colorectal cance r screening using Cologuard test - R19.5 (Primary)?2.?Celiac disease - K90.0? Overall, Connor appears quit e well from a clinical standpoint. She is not having any new or worrisome GI complaints. She is not having any symptoms to suggest active celiac disease despite what sounds like a not 100% strict gluten-free diet. Given her recent positive Cologuard test and her last colonoscopy being well over 10 years ago, I did recommend a colonoscopy for further evaluation. We did review the rationale for this regard to colon cancer prevention and/or early detection. Full consent was obtained for this, including risks of bleeding and perforation. The procedure will be done monitored anesthesia care. She was advised to stop iron one week before the procedure. In regard to the question of celiac disease I have ordered labs to recheck celiac disease laboratories. I shall also recheck iron studies and a CBC. If the iron studies remain elevated but her low MCV persists then I might indicate some other underlying issues such as some type of thalassemia. At some point we may want to reassess her with a gluten challenge and repeat duodenal biopsies try to make a more definitive assessment of her celiac disease one way or the other since her original biopsies of blood tests were so borderline. However, I don't think that is urgent. Connor was comfortable with this plan. Thank you again for allowing me to participate in Connor's care. I shall continue to keep you advised of her progress. Plan: * Treatment: Notes: Stop Iron for 1 week before the colonoscopy??2.?Celiac disease?LAB: IRON + IBC (FE) ?LAB: CBC w DIFF* Send copies to Dr. Almeida ?LAB: CELIAC PANEL #10 ?LAB: Ferritin* ? Value Reference Range ?Ferritin 336 H 10-250 - ng/mL Notes: Stay on the gluten-free diet?? * Procedure Codes:?3017F COLOR ECTAL CA SCREEN DOC [id number] TOBACCO [id number]-[id number] BP SCR NOT PRFRM REC REASON NOS * Preventive Medicine:? ??Urinary Incontinence:?Urinary Incontinence?Assessment:?Absent,?Plan of care documented:?No, reason not specified.? * Follow Up:?prn * * Sign off status: Completed true * Provider:?Sincere Marino MD Date:? 024 Generated for Ryan rangel/Johnathon/eTransmitting on:?08/10/2024 11:06 AM EDT History and Physical Notes * HPI (History of Present Illness) Category Sub-Category Detail Notes Category Not es incontinence I saw Connor in consultation today in regard to further evaluation of her previous iron deficiency anemia, suspicion of celiac disease, and a positive Cologuard test. I last saw Connor in 2011, at which time we had reviewed her history of possible celiac disease based on duodenal biopsies and laboratories. However, the duodenal biopsies in 2010 had shown just slight changes with slight villous atrophy and mild duodenitis. Her celiac profile only showed a slightly positive antigliadin IgA antibody with the remainder of the celiac disease profile being negative. She reports that she has stayed on a gluten-free diet although by the sound of her description she is not definitively strict with that. She has stayed on iron by her report as well. Her most recent labs from earlier this year showed hemoglobin 11.8 with MCV of 73. Studies from May of 2022 showed an iron of 132, iron saturation of 42%, and ferritin of 459. Her B12 and folate levels were normal. In addition to the upper endoscopy with duodenal biopsies in 2010, she also had a negative Colonoscopy at that time as well. She presently feels very well. She enjoys a good appetite, without any significant heartburn or dysphagia. She denies a particular change in bowel habits and denies any signs of bleeding. There is no known family history of colon cancer nor celiac disease. She denies any abdominal pain, signs of jaundice, nor any unintentional weight loss. As you know, she did have a positive Cologuard test this past April. She has not had a colonoscopy since her negative screening exam in 2010. Examination Category Sub-Category Detail Notes Category Not es General Examination GENERAL APPEARANCE: pleasant , well nourished, well developed, in no acute distress EYES: sclera non-icteric NECK/THYROID: no cervical lymphade nopathy, neck supple HEART: S1, S2 normal LUNGS: clear to auscultatio n bilaterally ABDOMEN: normal bowel sounds, no guarding or rigidity, no hepatosplenomegaly, no masses palpable, soft, nontender, nondistended. NEUROLOGIC: alert and oriented SKIN: nonjaundiced, no spi yesica angiomata. EXTREMITIES: no edema ORAL CAVITY: mucosa moist
--- OUTSIDE RECORDS SUMMARY | 2024-08-10 11:07 | XMS_ITS | Patient Health Record ---
Author Organization [facility] Address [address] [place] [address] Care Team Providers Care Website Designer Name Role Phone Ernie Almeida MD Primary Care Provider Sincere Velasquez [phone] Allergies Allergen (clinical drug ingredient) Drug/Non Drug Allergy documented on EMR Reaction Allergy Type Onset Date Status phenylephrine Phenylephrine Unknown Drug Allergy Active lisinopril Lisinopril COUGH Drug Allergy Activ e amoxicillin Amoxicillin FAINTING Drug Allergy Act margret robitusson (uncoded) Unknown Allergy Active Results Component Value Reference Range Notes Ferritin Reviewed date:09/29/2023 10:32:44 PM Interpretation: Performing Lab:[facility], [address] [place] [phone] Notes/Report: Ferritin 336 10-250 ng/mL Complete Blood Count Auto Di ff Reviewed date:10/05/2023 09:21:49 PM Interpretation: Performing Lab:[facility], [address] [place] [phone] Notes/Report: White Blood Count 5.3 4.8-10.8 X10*3/uL Red Blood Count 4.56 4.20-5.50 X10*6/uL Hemoglobin 11.2 12.0-16.0 g/dl Hematocrit 33.3 37.0-47.0 % Mean Corpuscular Volume 73.0 80.0-98.0 fL Mean Corpuscular Hemoglobin 24.6 27.0-33.0 pg Mean Corpuscular HGB Conc 33.6 31.0-35.0 g/dl Red Cell Distribution Width 13.7 11.0-16.0 % Platelet Count 306 160-400 X10*3/uL Mean Platelet Volume 8.5 9.4-12.3 fL Neutrophils Percent Auto 46.1 45-73 % Imm Gran Pct Auto 0.2 0.0-0.4 % Lymphocytes Percent Auto 41.1 20-40 % Monocytes Percent Auto 6.0 2-11 % Eosinophils Percent Auto 5.1 0-4 % Basophils Percent Auto 1.5 0-2 % NRBC Pct Auto 0.0 0.0-0.2 /100WBC Neutrophils Absolute Auto 2.5 2.0-8.3 x10*3/u L Imm Gran Abs Auto 0.01 0.00-0.03 X10*3/uL Lymphocytes Absolute Auto 2.2 1.2-4.9 X10*3/u L Monocytes Absolute Auto 0.3 0.1-1.2 X10*3/uL Eosinophils Absolute Auto 0.3 0.0-0.4 X10*3/u L Basophils Absolute Auto 0.1 0.0-0.2 X10*3/uL NRBC Abs Auto 0.000 0.0-0.012 X10*3/uL IRON PROFILE Reviewed date:09/17/2023 05:41:36 PM Interpretation: Performing Lab:[facility], [address] [place] [phone] Notes/Report: Iron 112 30-160 mcg/dL Total Iron Binding Capacity 293 228-428 mcg/d L Percent Iron Saturation 38 15-50 % Unsaturated Iron Binding 181 Immunoglobulin A Reviewed date:09/29/2023 10:28:33 PM Interpretation: Performing Lab:[facility], [address] [place] [phone] Notes/Report: Immunoglobulin A 353 70-320 mg/dL THIS TEST WAS PERFORMED AT: [facility] [address] [phone] LIVIA RITTER MD Transglutaminase Ab IgG Reviewed date:09/29/2023 10:32:08 PM Interpretation: Performing Lab:[facility], [address] [place] [phone] Notes/Report: Transglutaminase Ab IgG <1.0 Value Interpretation ----- <15.0 Antibody not detected > or = 15.0 Antibody detected THIS TEST WAS PERFORMED AT: [facility] [address] [place] [phone] LIVIA RITTER MD Transglutaminase IgA Reviewed date:09/29/2023 10:32:15 PM Interpretation: Performing Lab:[facility], [address] [place] [phone] Notes/Report: Transglutaminase IgA <1.0 Value Interpretation ----- <15.0 Antibody not detected > or = 15.0 Antibody detected THIS TEST WAS PERFORMED AT: [facility] [address] [place] [phone] LIVIA RITTER MD Gliadin Ab Panel Reviewed date:09/29/2023 10:32:23 PM Interpretation: Performing Lab:[facility], [address] [place] [phone] Notes/Report: Gliadin Deamidated IgA Ab <1.0 Value Interpretation ----- <15.0 Antibody not detected > or = 15.0 Antibody detected Gliadin Deamidated IgG Ab <1.0 Value Interpretation ----- <15.0 Antibody not detected > or = 15.0 Antibody detected THIS TEST WAS PERFORMED AT: [facility] [address] [place] [phone] LIVIA RITTER MD Endomysial IgA rflx Titer Reviewed date:09/29/2023 10:32:30 PM Interpretation: Performing Lab:[facility], [address] [place] [phone] Notes/Report: Endomysial IgA Antibody Negative Negative THIS TEST WAS PERFORMED AT: [facility]/[address] [phone] ANTONIA JOHNSON MD,PHD Endomysial Titer TNP Reason For Referral No Information Medications Medication SIG (Take, Route, Frequency, Duration) Notes Start Date End Date Status Losartan Potassium-HCTZ 100-12.5 MG TAKE ONE TABLET BY MOUTH EVERY DAY Oral for 90 Active Vitamin D3 Active Multivitamin Active Biotin Active Social History Alcohol Screen Question Answer Notes Did you [...] Negative Section Notes: Nonsmoker, no sig. alcohol Nonsmoker, no sig. alcohol Originally from [facility] Problems Problem Type SNOMED Code ICD Code Onset Dates Problem Status W/U Status Risk Notes Problem Diverticular disease of colon (151010047) Diverticulosis of large intestine without perforation or abscess without bleeding (K57.30) Active confirmed Problem Celiac disease (140771264) Celiac disease (K90.0) Active confirmed Problem Positive colorectal cancer screening using Cologuard test (R19.5) Active confirmed Vital Signs Blood pressure diastolic 00 mm Hg 09/16/2023 Height 61.50 in 09/16/2023 Blood pressure systolic 00 mm Hg 09/16/2023 Weight 130 lbs 09/16/2023 BMI 24.16 kg/m2 09/16/2023 Encounters Encounter Location Date Provider Diagnosis [facility] [address] [place] [phone] 10/27/2023 Sincere Marino Encounter for screen ing colonoscopy Z12.11 ; Heme + stool R19.5 ; Diverticulosis of large intestine without perforation or abscess without bleeding K57.30 and Other hemorrhoids K64.8 [facility] [address] [place] [phone] 09/16/2023 Sincere Marino Celiac disease K90.0 and Positive colorectal cancer screening using Cologuard test R19.5 Assessments Encounter Date Diagnosis (ICD Code) Assessment Notes Treatment Notes Treatment Clinical Notes Section Notes 10/27/2023 Encounter for screening colonoscopy (ICD-10 - Z12.11) 10/27/2023 Heme + stool (ICD-10 - R19.5) 09/16/2023 Celiac disease (ICD-10 - K90.0) Stay [...] to keep you advised of her progress. 10/27/2023 Diverticulosis of large intestine without perforation or abscess without bleeding (ICD-10 - K57.30) 10/27/2023 Other hemorrhoids (ICD-10 - K64.8) Plan Of Treatment Pending Test Test Name Order Date IRON + IBC (FE) 09/16/2023 CBC w DIFF 09/16/2023 CELIAC PANEL #10 09/16/2023 ENDOMYSIAL IGA 01/16/2011 TRANSGLUTAMINASE AB IGA 01/16/2011 TRANSGLUTAMINASE AB IGG 01/16/2011 Future Test Test Name Order Date COLONOSCOPY 09/16/2023 Insurance Providers Payer Name Payer Address Payer Phone Subscriber Number Group Number Insured Name Patient Relationship to Insured Coverage Start Date Coverage End Date [facility] [address] Attn Claims [place] Barron [id number] CONNOR GUERRERO Self - patient is the insured Medical (General) History Medical History History ICD Code Celiac disease on duodenal biopsies from 2010 HTN Iron def. anemia Denies IN,DM,CVA,Lung disease,renal dise ase Neg. screening colonoscopy 2010 + Cologuard in 04/2023 Surgical History Surgery Date(Month/Year)
--- OUTSIDE RECORDS SUMMARY | 2024-08-10 11:07 | XMS_ITS ---
Author Organization [facility] Address [address] [place] [address] Care Team Providers Care Foreign Language Teacher Name Role Phone Ernie Almeida MD Primary Care Provider Sincere Velasquez [phone] REASON FOR VISIT positive colon cancer screening using cologuard Problems Problem Type SNOMED Code ICD Code Onset Dates Problem Status W/U Status Risk Notes Problem Diverticulosis o f large intestine without perforation or abscess without bleeding (K57.30) Active confirmed Encounters Encounter Location Date Provider Diagnosis [facility] [place] Outpatient [address] [place] [id number] 10/27/2023 Sincere Marino Encounter for scre ening colonoscopy Z12.11 ; Heme + stool R19.5 ; Diverticulosis of large intestine without perforation or abscess without bleeding K57.30 and Other hemorrhoids K64.8 Assessments Encounter Date Diagnosis (ICD Code) Assessment Notes Treatment Notes Treatment Clinical Notes Section Notes 10/27/2023 Encounter for screening colonoscopy (ICD-10 - Z12.11) 10/27/2023 Heme + stool (ICD-10 - R19.5) 10/27/2023 Diverticulosis of large intestine without perforation or abscess without bleeding (ICD-10 - K57.30) 10/27/2023 Other hemorrhoids (ICD-10 - K64.8) Plan Of Treatment No Information Progress Notes * CESAR PAULINAOUNDOB:[birth year] (69 yo F)Acc No.[id number]:10/27/2023 COLON WITH MAC Patient:?CONNOR GUERRERO Provider:?Sincere Marino MD :1955???Age:68 Y???Sex:Female D ate:10/27/2023 Address:[address] [place] [address] [facility] Pcp:Ernie Almeida MD Subjective: * Chief Complaints: * ???1. Positive colon cancer screening using cologuard. * Medical History:? Objective: * Vitals:? Assessment: * Assessment: 1.?Encounter for screening c olonoscopy - Z12.11 (Primary)???2.?Heme + stool - R19.5???3.?Diverticulosis of large intestine without perforation or abscess without bleeding - K57.30???4.?Other hemorrhoids - K64.8??? Plan: * Treatment: * Procedure Codes:?66057 DIAGN OSTIC COLONOSCOPY * * The named appointment provid er may or may not be the originator of this progress note, and it is not deemed complete until electronically signed by the appointment provider. Sign off status: Pending * Provider:?Sincere Marino MD Date:? 024 Generated for Ryan rangel/Johnathon/eTransmitting on:?08/10/2024 11:07 AM EDT
== END 2024-08-10 09:55 | disposition home or self-care (01) ==
LOC: HO.MAMMO 09:54
PROVIDERS: PCP Internal Medicine; Visit Provider Internal Medicine
DX: Z12.31 Encounter for screening mammogram for malignant neoplasm of breast (principal)
CPT/HCPCS: 77063; 77067

== ENCOUNTER → 2024-08-10 10:00 | Outpatient (BNV) | payer MEDICARE, SELFPAY | PROVIDERS: PCP Internal Medicine; Visit Provider Internal Medicine | DX: Z12.31 Encounter for screening mammogram for malignant neoplasm of breast (principal) | CPT/HCPCS: 77063; 77067 ==

== ENCOUNTER 2024-09-13 07:36 | Outpatient (REF) | payer MEDICARE, SELFPAY ==
--- OUTSIDE RECORDS SUMMARY | 2024-09-13 07:39 | XMS_ITS ---
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 Name Role Phone Ernie Almeida MD Primary Care Provider Sincere Velasquez [phone] Allergies Allergen (clinical drug ingredient) Drug/Non Drug Allergy documented on EMR Reaction Allergy Type Onset Date Status phenylephrine Phenylephrine Unknown Drug Allergy Active lisinopril Lisinopril COUGH Drug Allergy Activ e amoxicillin Amoxicillin FAINTING Drug Allergy Act margret robitusson (uncoded) Unknown Allergy Active Results Component Value Reference Range Notes Ferritin Reviewed date:09/29/2023 10:32:44 PM Interpretation: Performing Lab:[facility], [address] [place] [phone] Notes/Report: Ferritin 336 10-250 ng/mL REASON FOR [...] W/U Status Risk Notes Problem Celiac disease (552367635) Celiac disease (K90.0) Active confirmed Problem Abnormal feces (571604690) Positive colorectal cancer screening using Cologuard test (R19.5) Active confirmed Vital Signs Blood pressure systolic 00 mm Hg 09/16/19 24 Blood pressure diastolic 00 mm Hg 024 Height 61.50 in 09/16/2023 Weight 130 lbs 09/16/2023 BMI 24.16 kg/m2 09/16/2023 Encounters Encounter Location Date Provider Diagnosis [facility] [address] [place] [address] 09/16/2023 Sincere Marino Celiac disease K90.0 and [...] * PAULINA GUERREROOUNDOB:[birth year] (68 yo F)Acc No.[id number]:09/16/2023 Progress Notes Patient:?CONNOR GUERRERO Provider:?Sincere Marino MD :1955???Age:68 Y???Sex:Female D ate:09/16/2023 Address:[address] [place] [address] [facility] Pcp:Ernie Almeida MD Subjective: * Chief Complaints: [...] Retired. ???Nonsmoker, no sig. alcohol Originally from [facility]. * Medications:?TakingBiotin Mu ltivitamin Vitamin D3 Losartan [...] Procedure Codes:?3017F COLOR ECTAL CA SCREEN DOC SNR6376G TOBACCO NON-PYBVG0435 BP SCR NOT PRFRM REC REASON NOS * Preventive Medicine:? ??Urinary Incontinence:?Urinary Incontinence?Assessment:?Absent,?Plan of care documented:?No, reason not specified.? * Follow Up:?prn * * Sign off status: Completed true * Provider:?Sincere Marino MD Date:? 024 Generated for Ryan rangel/Johnathon/eTransmitting on:?09/13/2024 07:39 AM EDT History and Physical Notes * [...]
[2024-09-13 07:53] LABS: MANUAL DIFF FLAG NO
[2024-09-13 08:14] LABS: Basophils Absolute Auto 0.1 X10*3/uL (0.0-0.2); Basophils Percent Auto 1.3 % (0-2); Eosinophils Absolute Auto 0.3 X10*3/uL (0.0-0.4); Eosinophils Percent Auto 6.4 % (0-4); Hematocrit 35.1 % (37.0-47.0); Hemoglobin 11.4 g/dl (12.0-16.0); Imm Gran Abs Auto 0.01 X10*3/uL (0.00-0.03); Imm Gran Pct Auto 0.2 % (0.0-0.4); Immature Retic Fraction 14.1 % (3.0-15.9); Lymphocytes Absolute Auto 2.4 X10*3/uL (1.2-4.9); Lymphocytes Percent Auto 43.9 % (20-40); Mean Corpuscular HGB Conc 32.5 g/dl (31.0-35.0); Mean Corpuscular Hemoglobin 24.2 pg (27.0-33.0); Mean Corpuscular Volume 74.4 fL (80.0-98.0); Mean Platelet Volume 8.6 fL (9.4-12.3); Monocytes Absolute Auto 0.4 X10*3/uL (0.1-1.2); Monocytes Percent Auto 7.9 % (2-11); Neutrophils Absolute Auto 2.2 x10*3/uL (2.0-8.3); Neutrophils Percent Auto 40.3 % (45-73); Platelet Count 266 X10*3/uL (160-400); Red Blood Count 4.72 X10*6/uL (4.20-5.50); Red Cell Distribution Width 13.8 % (11.0-16.0); Retic HGB Equivalent 27.3 pg (30.0-35.0); Reticulocyte Percent 1.8 % (0.5-1.8); Reticulocytes Absolute 0.084 X10*6/uL (0.026-0.095); White Blood Count 5.4 X10*3/uL (4.8-10.8)
[2024-09-13 08:42] LABS: Alanine Aminotransferase 30 U/L (0-31); Albumin Level 4.5 g/dL (3.5-5.0); Anion Gap 14 (12-20); Aspartate Amino Transferase 34 U/L (5-31); Bilirubin Total 0.3 mg/dL (0.0-1.0); Blood Urea Nitrogen 15 mg/dL (9-16); Calcium 9.6 mg/dL (8.4-10.2); Carbon Dioxide 25 mmol/L (22-29); Chloride 105 mmol/L (96-108); Cholesterol 224 mg/dL (<200); Estimated Glomerular Filt Rate > 60; Glucose Random 95 mg/dL (60-115); HDL Cholesterol 62 mg/dL (>40); Iron 90 mcg/dL (30-160); LDL Cholesterol Calculated 144 mg/dL (<100); Percent Iron Saturation 31 % (15-50); Potassium 4.5 mmol/L (3.3-5.1); Sodium 139 mmol/L (135-145); Total Iron Binding Capacity 289 mcg/dL (228-428); Total Protein 7.9 g/dL (6.5-8.0); Triglycerides 94 mg/dL (<150); Unsaturated Iron Binding 199 ug/dL
[2024-09-13 08:59] LABS: Appearance Urine Clear; Color Urine Yellow; Glucose Urine UA Negative (Negative); Leukocyte Esterase Urine Trace (Negative); Nitrite Urine Negative (Negative); PH 6.5 (5.0-9.0); Specific Gravity - Urine 1.015 (1.005-1.025); UMIC TRIGGER UACC YES; Urine Blood Negative (Negative); Urine Ketones Negative (Negative); Urine Protein Negative (Neg-Trace)
[2024-09-13 09:01] LABS: Ferritin 321 ng/mL (10-250); Free T4 (Free Thyroxine) 1.04 ng/dL (0.71-1.85); Thyroid Stimulating Hormone 1.74 uIU/mL (0.32-4.0); Vitamin D 25-OH Total 77.3 ng/mL (>30)
[2024-09-13 09:02] LABS: Bacteria Urine None Seen (None Seen); Hyaline Casts Urine 0-2 /LPF (0-2); RBC Urine 0-2 /HPF (0-2); Squamous Epithelial Cell Urine 0-2 /HPF (0-2); WBC Urine 0-5 /HPF (0-5)
[2024-09-13 09:05] LABS: Folate 15.5 ng/mL (> or = 4.0); Vitamin B12 1094 pg/mL (200-900)
[2024-09-13 09:09] LABS: Alkaline Phosphatase 100 U/L (39-117)
== END 2024-09-13 07:37 | disposition home or self-care (01) ==
LOC: HO.LAB 07:36
PROVIDERS: PCP Internal Medicine; Visit Provider Internal Medicine
DX: I10 Essential (primary) hypertension (principal); E78.00 Pure hypercholesterolemia, unspecified; R30.0 Dysuria
CPT/HCPCS: 36415; 80053; 80061; 81001; 82306; 82607; 82728; 82746; 83540; 84439; 84443; 85025; 85045

== ENCOUNTER 2024-09-27 10:47 | Outpatient (AMB) | payer MEDICARE, SELFPAY ==
[2024-09-27 10:49] VITALS: BP 142/74; PULSE 100; TEMP 36.1; O2SAT 97; BMI 25.6
--- NOTE | 2024-09-27 10:49 | A.OFFPC_ITS ---
Vital Signs 09/27/24 10:49 09/27/24 11:07 Height 5 ft 1.5 in Weight 138 lb BMI 25.6 BP 142/74 H 132/60 Blood Pressure Location Lt brachial Lt brachial Position Sitting Sitting Pulse 100 Pulse Source Pulse Oximeter Temp 97.0 F Temp Source Temporal Artery Scan Pulse Oximetry (%) 97 Oxygen Delivery Method Room Air Intake Visit Reasons: 6 Month F/U Accompanied by: Spouse Allergies lisinopril Allergy (Intermediate, Verified 09/27/24 10:52) Cough dextromethorphan (From Robitussin Cough and Cold CF) Allergy (Unknown, Verified 09/27/24 10:52) Stomach Upset guaifenesin (From Robitussin Cough and Cold CF) Allergy (Unknown, Verified 09/27/24 10:52) Stomach Upset phenylephrine (From Robitussin Cough and Cold CF) Allergy (Unknown, Verified 09/27/24 10:52) Stomach Upset amoxicillin Adverse Reaction (Mild, Verified 09/27/24 10:52) Fainting Tobacco use date assessed: 09/27/24 Fall risk assessment: 1 Fall in past year Last assessed Fall Risk: 09/27/24 Dental Screening Dental Screen Date: 09/27/24 Did you have a dental visit in the last 12 months?: Yes Did you have a dental problem in the last 6 months where you did not have access to dental care?: No Was dental information given to patient?: Patient has dentist [facility] Medical History Osteopenia Colon cancer screening Breast cancer screening by mammogram Colonoscopy refused Positive colorectal cancer screening using Cologuard test Elevated cholesterol HTN (hypertension) Vitamin D deficiency Osteopenia Constipation Microcytic anemia Celiac disease Surgical History H/O endoscopy History of colonoscopy Family History Father No problems noted. Paternal Aunt No problems noted. Mother No problems noted. Social History Housing: House Alcohol intake: current Comment: one shot once a month 1-2 DRINKS Patient Tobacco Use Status: Never used Tobacco e-Cigarette/Vaping Use: Never Used Second Hand Smoke Exposure: No Current occupational status: employed Cognitive needs: No Hearing needs: No Vision needs: Yes Questionnaire PHQ-9 Over the last 2 weeks, how often have you been bothered by any of the following problems? 1. Little interest or pleasure in doing things: not at all 2. Feeling down, depressed, or hopeless: not at all 3. Trouble falling or staying asleep, or sleeping too much: not at all 4. Feeling tired or having little energy: not at all 5. Poor appetite or overeating: not at all 6. Feeling bad about yourself - or that you are a failure or have let yourself or your family down: not at all 7. Trouble concentrating on things, such as reading the newspaper or watching television: not at all 8. Moving or speaking so slowly that other people could have noticed. Or the opposite - being so fidgety or restless that you have been moving around a lot more than usual: not at all 9. Thoughts that you would be better off or of hurting yourself in some way: not at all Total score: 0 Depression Screening Interpretation: Negative Depression Screening Done: Yes Source: Developed by Drs. Sincere English, Elsa Kenney, Danial Maldonado and colleagues, with an educational bryan from [employer] Thrive Questionnaire Date Thrive assessed: 09/27/24 I am a: Patient What is your living situation today?: I choose not to answer this question Within the past 12 months, did the food you bought not last and you didn't have the money to get more?: I choose not to answer this question Within the past 12 months, did you worry whether your food would run out before you got money to buy more?: I choose not to answer this question Do you have trouble paying for medicines?: I choose not to answer this question Do you have trouble getting transportation to medical appointments?: I choose no t to answer this question Do you have trouble paying your heating and electricity bill?: I choose not to answer this question Do you have trouble taking care of your child, family member or friend?: I choose not to answer this question Do you have trouble with day-to-day activities such as bathing, preparing meals, shopping, managing finances, etc.?: I choose not to answer this question Are you currently unemployed and looking for a job?: I choose not to answer this question Are you interested in more education?: I choose not to answer this question Please select the resources that you would like help with: None Currently or been in a relationship where the following occur: I choose not to answer THRIVE Score: 0 AUDIT C Alcohol Use Questionnaire (AUDIT-C) 1. How often do you have a drink containing alcohol?: 2-4 times a month 2. How many drinks containing alcohol do you have on a typical day when you are drinking?: 1 or 2 3. How often do you have six or more drinks on one occasion?: Never Total Score: 2 JUAN-7 AMB Questionnaire JUAN-7 Date JUAN - 7 assessed: 09/27/24 Feeling nervous, anxious, or on edge: 0 = Not at all Not being able to stop or control worryin = Not at all Worrying too much about different things: 0 = Not at all Trouble relaxin = Not at all Being so restless that it is hard to sit still: 0 = Not at all Becoming easily annoyed or irritable: 0 = Not at all Feeling afraid as if something awful might happen: 0 = Not at all Total JUAN-7 score (0-4 normal; 5-9 mild; 10-14 moderate; 15-21 severe): 0 Source: Developed by Drs. Sincere English, Esla Kenney, Danial Maldonado and colleagues, with an educational bryan from [employer] Physical exam (Primary Care) Vital Signs: Last Vital Signs Temp 97.0 F 09/27/24 10:49 Pulse 100 09/27/24 10:49 BP 132/60 09/27/24 11:07 Pulse Ox 97 09/27/24 10:49 Oxygen Delivery Method Room Air 09/27/24 10:49 BMI result Body Mass Index 25.6 Tobacco/Smoking Status: Tobacco use Status Tobacco use date assessed 09/27/24 09/27/24 10:53 Patient Tobacco Use Status Never used Tobacco 09/27/24 10:53 e-Cigarette/Vaping Use Never Used 09/27/24 10:53 PHQ-9: PHQ-9 Score PHQ-9: Total score 0 09/27/24 11:06 Depression Screening Interpretation: Negative Thrive Assessment: Date of Thrive Assessment Date Thrive assessed 09/27/24 09/27/24 10:53 Currently or been in a relationship where the following occur: I choose not to answer Const General: alert; No acute distress Eyes Conjunctivae: conjunctivae normal Resp Auscultation: clear to auscultation bilaterally Cardio Rate: regular rate Rhythm: regular rhythm GI Inspection: Yes normal to inspection Extrem General: Yes normal to inspection and No edema Coding Level of Care Code Est Pt Level 4 (86789) Diagnoses Primary hypertension I10 Hypertension type: primary hypertension Hypercholesterolemia E78.00 Anemia D64.9 Assessment & Plan Assessment & Plan (1) HTN (hypertension): Code(s): I10 - Essential (primary) hypertension Category: Medical Qualifiers: Hypertension type: primary hypertension Qualified Code(s): I10 - Essential (primary) hypertension Plan: Continue with blood pressure medication. Decrease salt intake and exercise on losartan hydrochlorothiazide 100/12.5 mg once a day (2) Hypercholesterolemia: Code(s): E78.00 - Pure hypercholesterolemia, unspecified Category: Medical Plan: Avoid fried foods, chicken skin, eggs, butter margarine, pastries and meat. Be it pork or beef they have a lot of cholesterol LDL goal of less than 130 and triglyceride of less than 150. (3) Anemia: Code(s): D64.9 - Anemia, unspecified Category: Medical Plan: Chronic and stable Plan History of Present Illness The patient is a 69-year-old female presenting for a follow-up visit. She has a history of hypercholesterolemia, with her cholesterol levels being mildly elevated at 144 mg/dL as of the latest test. Her LDL cholesterol has shown a trend of increase from 124 mg/dL in 2021 to 144 mg/dL currently. Dietary habits, including consumption of fast foods and high cholesterol foods, have been discussed as contributing factors. The patient also has a history of hypertension, managed with losartan hydrochlorothiazide 100/12.5 mg once daily. Her blood pressure was recorded at 132 mmHg during this visit. Anemia has been a recurring issue, with the latest hemoglobin level at 11.4 g/dL, indicating mild microcytic anemia. Iron levels are adequate, and the patient is advised to continue with multivitamins containing iron. The patient has osteoporosis, with the last bone density test conducted in March 2024. Preventative care measures include a colon cancer screening done in October 2023 and a mammogram in August 2024. Health Maintenance - Colon cancer screening completed in October 2023 - Mammogram completed in August 2024 - Bone density test conducted in March 2024 - Discussion on shingles vaccination, patient declined Social History - Dietary habits include consumption of fast foods and high cholesterol foods such as eggs and ice cream. - Engages in walking as a form of exercise. Review of Systems - Cardiovascular: Denies leg swelling. Physical Exam - Cardiovascular: Blood pressure 132 mmHg, no leg swelling observed. Results - Labs: Hemoglobin 11.4 g/dL indicating mild microcytic anemia, adequate iron levels, cholesterol 144 mg/dL, LDL cholesterol 144 mg/dL. Plan The management plan includes continuing the current antihypertensive regimen of losartan hydrochlorothiazide 100/12.5 mg once daily to maintain blood pressure control. For hypercholesterolemia, dietary modifications are advised, focusing on reducing intake of high cholesterol foods and fast foods, and increasing fruit consumption as a healthier alternative to desserts. The patient is encouraged to continue taking multivitamins with iron to manage mild anemia, as iron levels are adequate. Preventative care measures are up to date, including colon cancer screening and mammogram. The patient declined shingles and pneumonia vaccinations, and this decision was acknowledged. Patient was informed and verbally consented to the use of an ambient scribe for clinic note documentation during this visit. Discussion Notes During the visit, we discussed the importance of dietary modifications to manage hypercholesterolemia, emphasizing the reduction of high cholesterol foods and fast foods. I advised the patient to continue her current antihypertensive medication and multivitamins with iron. We reviewed her preventative care measures, confirming that her colon cancer screening and mammogram are up to date. The patient was informed about the benefits of shingles and pneumonia vaccinations, but she chose to decline them. Patient Instructions - Continue taking losartan hydrochlorothiazide 100/12.5 mg once daily. - Follow dietary recommendations to reduce cholesterol intake, including limiting fast foods and high cholesterol foods. - Continue taking multivitamins with iron. - Maintain regular follow-up appointments for health monitoring. Orders: Orders Complete Blood Count Auto Diff 6 Months I10 - Essential (primary) hypertension Comprehensive Met. Panel 6 Months I10 - Essential (primary) hypertension Free T4 (Free Thyroxine) 6 Months I10 - Essential (primary) hypertension Thyroid Stimulating Hormone 6 Months I10 - Essential (primary) hypertension Vitamin B12 and Folate 6 Months I10 - Essential (primary) hypertension Ferritin 6 Months I10 - Essential (primary) hypertension IRON PROFILE 6 Months I10 - Essential (primary) hypertension Lipid Panel 6 Months E78.00 - Pure hypercholesterolemia, unspecified, I10 - Essential (primary) hypertension Vitamin D 25-OH Total 6 Months I10 - Essential (primary) hypertension Reticulocyte Count 6 Months I10 - Essential (primary) hypertension
[2024-09-27 11:07] VITALS: BP 132/60
--- OUTSIDE RECORDS SUMMARY | 2024-09-27 12:08 | XMS_ITS | Patient Health Record ---
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 alcohol Originally from [place] Problems Problem Type SNOMED Code ICD Code Onset Dates Problem Status W/U Status Risk Notes Problem Diverticular disease of colon (670872371) Diverticulosis of large intestine without perforation or abscess without bleeding (K57.30) Active confirmed Problem Celiac disease (994655786) Celiac disease (K90.0) Active confirmed Problem Abnormal feces (717772556) Positive colorectal cancer screening using Cologuard test (R19.5) Active confirmed Encounters Encounter Location Date Provider Diagnosis [facility] [place] [place] Outpatient [address], [place] [id number] 10/27/2023 Sincere Marino Encounter for scre ening [...] Insured Coverage Start Date Coverage End Date [facility] [address] Attn Claims [place] [id number] CONNOR GUERRERO Self - patient is the insured Medical (General) History Medical History History ICD Code Celiac disease on duodenal biopsies from 2010 HTN Iron def. anemia Denies [place],DM,CVA,Lung disease,renal dise ase Neg. screening colonoscopy 2010 + Cologuard in 04/2023 Surgical History Surgery Date(Month/Year)
== END 2024-09-27 12:56 | disposition home or self-care (01) ==
LOC: HO.HMCH 10:48
PROVIDERS: PCP Internal Medicine; Visit Provider Internal Medicine
DX: I10 Essential (primary) hypertension (principal); E78.00 Pure hypercholesterolemia, unspecified; D64.9 Anemia, unspecified

== ENCOUNTER → 2024-09-27 10:47 | Outpatient (BNVA) | payer MEDICARE, SELFPAY | PROVIDERS: PCP Internal Medicine; Visit Provider Internal Medicine | DX: I10 Essential (primary) hypertension (principal); E78.00 Pure hypercholesterolemia, unspecified; D64.9 Anemia, unspecified | CPT/HCPCS: 96127; 99212 ==